=== PATIENT | female | born 1960 | race Caucasian/White ===

== ENCOUNTER 2024-01-15 15:37 | Inpatient (IN) | payer BC, SELFPAY ==
[2024-01-15 11:13] VITALS: BP 103/76
[2024-01-15 12:05] LABS: Hematocrit 39.2 % (37.0-47.0); Hemoglobin 13.4 g/dL (12.0-16.0); Mean Corp Hgb Conc. 34.2 g/dL (33.0-37.0); Mean Corpuscular Hgb 28.5 pg (27.0-31.0); Mean Corpuscular Volume 83.4 fL (81.0-99.0); Mean Platelet Volume 10.8 fL (7.4-10.4); Platelet Count 306 10^3/uL (130-400); Red Cell Dist. Width 14.5 % (11.5-14.5); White Blood Cell Count 16.1 10^3/uL (4.8-10.8)
[2024-01-15 12:15] LABS: Lactic Acid 1.3 mmol/L (0.7-2.0)
[2024-01-15 12:17] LABS: ALT (SGPT) 15 U/L (0-35); AST (SGOT) 30 U/L (14-36); Albumin 3.7 g/dl (3.5-5.0); Alkaline Phosphatase 98 U/L (38-126); Blood Urea Nitrogen 14 mg/dl (7-17); Carbon Dioxide 25 mmol/L (22-30); Chloride 97 mmol/L (98-107); Glucose 92 mg/dl (70-99); Potassium 4.3 mmol/L (3.5-5.1); Sodium 129 mmol/L (135-145); Total Bilirubin 1.1 mg/dl (0.2-1.3); eGFR > 60.00
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
[2024-01-15 12:44] LABS: Absolute Neutrophils -Man Diff 14.3 10^3/uL (1.4-6.5); Band Neutrophils 13 % (0-3); Eosinophils 1 % (0-6); Lymphocytes 2 % (20-51); Metamyelocytes 2 % (-); Monocytes 6 % (2-9); Platelets Checked Yes; Segmented Neutrophils 76 % (42-75)
[2024-01-15 12:45] LABS: Normal RBC Morphology Yes; Total Cells Counted 100
[2024-01-15 13:37] LABS: COVID-19 Antigen Negative (Negative)
[2024-01-15] MEDS: ZITHROMAX INFUSION 250 IV (13:50)
[2024-01-15] MEDS: ROCEPHIN 1000 MG IV (13:50)
[2024-01-15] MEDS: DUONEB 3 ML INH (13:51)
[2024-01-15] MEDS: NSS 1000 IV ×2 (13:56→17:32)
--- NOTE | 2024-01-15 14:12 | HPS.HSE ---
Addendum entered and electronically signed by Myron Ramirez DO 01/15/24 15:19:
Patient seen and examined discussed with KENDRICK Valdez, and I agree with her note.
Gen-AAOx3, NAD
HEENT-NC, AT, anicteric, clear oral mm
Neck-supple
CV-reg, no M, +S1/S2
Lungs-bilateral rhonchi
Abd-soft, NT, ND
Ext-no edema
Musculoskeletal-no cyanosis, clubbing
Skin-warm and dry
Neuro-grossly non-focal
Psych-calm, cooperative
Acute hypoxic respiratory insufficiency -due to pneumonia. Pulse ox 91% on room air. Admit to telemetry.
Sepsis due to community-acquired pneumonia -with underlying chronic bronchiectasis. History of Klebsiella and Pseudomonas positive sputum. Start empiric cefepime, check sputum culture.
Chronic bronchiectasis/ILD - followed by pulmonary, Dr. Horton. She started budesonide nebs this week with onset of her illness as well as albuterol nebs.
Hyponatremia -sodium 129. Check urine studies. Suspect SIADH related to pneumonia.
Hypothyroidism -continue Synthroid.
History of laryngeal cancer -s/p chemo, XRT 1996.
Chronic dysphagia -suspect related to prior laryngeal cancer and treatment. She was discharged from speech therapy recently. On a soft diet with thin liquids at home. She does not feel that she needs another speech therapy assessment.
History of breast cancer -s/p lumpectomy.
HCV
History of bowel obstruction
Full code
Original Note:
Family Physician
-
Family Physician: Melani Wilkerson
Chief Complaint
-
Shortness of Breath
History of Present Illness
Pt is a 63yo F w/ a PMH of Interstitial Lung Disease, Chronic Bronchiectasis, and recurrent pneumonia who is presenting to the ED c/o SOB x 5 days. She states she is short of breath at baseline but says this has increased significantly in the last 5
days, and is worse in the last 2 days. She states that she uses nebulizers at home, but has increased frequency this past week and has added Budesonide. She states she developed a fever last night with a Tmax of 101F. She admits to chills and
intercostal chest discomfort x 5 days. She admits to sweats x 3 days. She admits to non-productive, moist sounding cough which she states is chronic over the last several years but has become worse in the last week. She admits to history of
aspiration and is on a modified diet of soft foods with thin liquids. She denies known sick contacts.
Medical History
Past Medical History
Past Medical History: Reports Other
Additional Past Medical History:
Bronchiectasis / Interstitial Lung Disease
Hypothyroidism
Hepatitis C, clinically cured
Dysphagia
Laryngeal Cancer s/p Chemo and Radiation - 1996
Breast Cancer s/p Lumpectomy
Past Surgical History: Reports Other
Additional Past Surgical History:
Appendectomy
Cholecystectomy
Partial Hepatic Resection
Left Breast Lumpectomy
Social History
Tobacco: Former Smoker
Alcohol: Former
Drug: Former User
Family History
Family History: Not pertinent
Allergies / Home Medications
Allergies reflects when Allergies were last updated in [facility].
Home Medications with original date entered in [facility]
Allergy/Medication List:
Allergies
Allergy/AdvReac Type Severity Reaction Status Date / Time
No Known Allergies Allergy Verified 01/15/24 11:17
Home Medications
levothyroxine 75 mcg tablet 75 mcg PO DAILY 08/31/11
therapeutic multivitamin 1 tab PO DAILY ##0 01/04/18
trazodone 50 mg tablet 50 mg PO HS ##0 01/04/18
alprazolam 0.5 mg tablet (Xanax) 0.5 mg PO HS 01/15/24
estradiol 0.01% (0.1 mg/gram) vaginal cream (Estrace) 0 applic vaginal TUTH 01/15/24
fluconazole 150 mg tablet 150 mg PO DAILY 01/15/24
ipratropium bromide 0.02 % solution for inhalation 0.5 mg inhalation R Q6HPRN PRN sob 01/15/24
levalbuterol HCl 1.25 mg/3 mL solution for nebulization 1.25 mg inhalation R Q8HPRN PRN sob 01/15/24
Review of Systems
-
A 12 point ROS was completed and negative except as noted: Yes
Constitutional: Reports Fever
Respiratory: Reports Cough and Trouble Breathing
Cardiac: Denies Chest Pain or Palpitations
Abdomen/GI: Denies Abdominal Pain or Nausea
Physical Exam
Vital Signs
Vital Signs
Temp Pulse Resp BP Pulse Ox
98.0 F 107 18 103/76 91
01/15/24 11:13 01/15/24 11:13 01/15/24 11:13 01/15/24 11:13 01/15/24 11:13
Physical Exam
General: Comfortable and Conversant
HEENT: Moist mucous membranes and Oxygen (Nasal Cannula)
Respiratory: Rales (Right middle region) and Non Labored Respirations; No Accessory Resp Muscle Use
Cardiac: S1/S2 and Tachycardia (Slightly)
GI: Soft and Non Tender
Rectal: Deferred by Provider
Musculoskeletal: No Clubbing, No Cyanosis and No Edema
Skin: Warm and Dry
Neuro: Awake, Alert, Oriented and Nonfocal/grossly intact
Laboratory Results
-
01/15/24 11:54
01/15/24 11:54
Laboratory Results
Lactic Acid 1.3 mmol/L (0.7-2.0) 01/15/24 11:54
Total Bilirubin 1.1 mg/dl (0.2-1.3) 01/15/24 11:54
AST 30 U/L (14-36) 01/15/24 11:54
ALT 15 U/L (0-35) 01/15/24 11:54
Alkaline Phosphatase 98 U/L (38-126) 01/15/24 11:54
Data Reviewed
-
Diagnostic Radiology: Report Reviewed by me
Lab Data: Labs Reviewed by me
Impression/Plan
-
Acute Hypoxic Respiratory Insufficiency secondary to Pneumonia
-Continue supplemental oxygen
Sepsis secondary to Right Middle/Upper Lobe Pneumonia
-Concern for aspiration given her prior history of dysphagia
-Consult Speech Therapy
-Transition to Cefepime to cover for possible pseudomonas given prior history
-Continue Mucinex
-Consult Pulmonary
Hyponatremia
-Check urine electrolytes
-Continue fluid restriction
Interstitial Lung Disease / Bronchiectasis
-Continue Xopenex and Ipratropium Nebs
Hypothyroidism
-Continue Synthroid
Anxiety/Insomnia
-Continue trazodone and Xanax as prior to admission
Hx Laryngeal Cancer s/p Chemo and Radiation - 1996
Hx Breast Cancer s/p Lumpectomy
DVT proph: Lovenox
Code Status: Full Code
[2024-01-15 14:23] LABS: Procalcitonin 8.63 ng/ml (0.0-0.25)
[2024-01-15] MEDS: ZOFRAN 4 MG IV (15:50)
[2024-01-15 16:26] VITALS: BP 122/92
--- NOTE | 2024-01-15 16:30 | PTCARENOTE ---
Pt arrived to rm 405-1 at this time, AAOx3, no complaints of pain, SR on telemetry. SpO2 97% on 2L of O2. See shift assessment for further detail. Oriented pt to plan of care, reporting concerns, call brar etc, will monitor.
[2024-01-15] MEDS: MAXIPIME 2000 MG IV (17:32)
[2024-01-15] MEDS: LOVENOX 40 MG SC (17:33)
[2024-01-15] MEDS: STERILE WATER FOR INJECTION 10 ML IV (17:33)
[2024-01-15] MEDS: TYLENOL 650 MG PO (18:12)
[2024-01-15 19:00] VITALS: BP 108/73
[2024-01-15] MEDS: ATROVENT NEBULES 0.5 MG INH (19:46)
[2024-01-15] MEDS: XOPENEX 1.25 MG INHALANT SOLUTION INH (19:47)
[2024-01-15] MEDS: XANAX 0.5 MG PO (20:27)
[2024-01-15] MEDS: MUCINEX 600 MG PO (20:27)
[2024-01-15 20:35] LABS: Osmolality Urine 222 mOsm/kg (300-900)
[2024-01-15 20:53] LABS: Urine Sodium 42 mmol/L (30-90)
[2024-01-15] MEDS: VISBIOME 1 CAP PO (21:06)
[2024-01-15] MEDS: DESYREL 50 MG PO (21:27)
[2024-01-15] MEDS: MELATONIN 5 MG PO (21:27)
[2024-01-15 23:26] VITALS: BP 75/47
[2024-01-15] MEDS: ProAmatine 10 MG PO (23:38)
--- NOTE | 2024-01-15 23:46 | PTCARENOTE ---
Pt BP is 75/47. HR= 69, afebrile. Pt denies symptoms, was sleeping prior to vs taken and is asking to go back to sleep. stephanie Meléndez notified and orders placed for midodrine stat and to increase IVF to 100 ml/hr for 2 hours then re check bp.
[2024-01-16] VITALS (23 sets, daily range): BP systolic 77–158; BP diastolic 49–116
--- NOTE | 2024-01-16 01:47 | W.PN.UPDATE ---
Update Note
Progress Note Update
Patient is hypotensive with SBP in low 70s, patient received bolus IVF in ER, and currently on maintenance IVF at 75ml/hr. IVF rate was increased and one time midodrine 10mg was given with no effect. Patient continue with hypotension with the SBP in
low 70s. Levophed started and will transfer patient to IMU for medication administration per protocol.
[2024-01-16 05:13] LABS: Hematocrit 34.2 % (37.0-47.0); Hemoglobin 11.6 g/dL (12.0-16.0); Mean Corp Hgb Conc. 33.9 g/dL (33.0-37.0); Mean Corpuscular Hgb 28.4 pg (27.0-31.0); Mean Corpuscular Volume 83.6 fL (81.0-99.0); Mean Platelet Volume 10.9 fL (7.4-10.4); Platelet Count 254 10^3/uL (130-400); Red Blood Cell Count 4.09 10^6/uL (4.20-5.40); Red Cell Dist. Width 14.6 % (11.5-14.5); White Blood Cell Count 16.9 10^3/uL (4.8-10.8)
[2024-01-16 05:38] LABS: Blood Urea Nitrogen 12 mg/dl (7-17); Calcium 9.1 mg/dl (8.4-10.2); Carbon Dioxide 26 mmol/L (22-30); Chloride 98 mmol/L (98-107); Estimated Creatinine Clearance 52 ml/min; Glucose 77 mg/dl (70-99); Magnesium 1.7 mg/dl (1.6-2.3); Potassium 4.5 mmol/L (3.5-5.1); Sodium 131 mmol/L (135-145); eGFR > 60.00
[2024-01-16] MEDS: MAXIPIME 2000 MG IV ×2 (05:59→16:12)
[2024-01-16] MEDS: STERILE WATER FOR INJECTION 10 ML IV ×2 (05:59→16:12)
[2024-01-16] MEDS: SYNTHROID 75 MCG PO (06:00)
--- NOTE | 2024-01-16 06:00 | PTCARENOTE ---
Pt received to IMU from 4E after drop in BP overnight. Order entered for Levophed gtt to keep MAP > 65. On arrival to floor MAP > 65 and has been maintained > 65. Levophed never initiated. Pt AAOx3. Able to make needs known. Bedrest for now. IVF's
infusing as ordered. Received Midodrine prior to arrival to IMU. Assessment as documented and unchanged. Was oriented to new room and surroundings. Call brar within reach.
[2024-01-16] MEDS: NSS 1000 IV ×2 (06:01→16:12)
[2024-01-16] MEDS: TYLENOL 650 MG PO ×2 (06:04→14:22)
[2024-01-16 06:06] LABS: TSH Reflex To Free T4 0.95 uIU/ml (0.47-4.68)
--- NOTE | 2024-01-16 07:36 | W.PN.HOSP.TC ---
Today's Communication/Plan
-
Acapella, incentive spirometer, Mucinex
Continue antibiotics
Continue normal saline
Await cultures
Pulmonary consult
Assessment / Plan
Assessment / Plan
Gen-AAOx3, NAD
HEENT-NC, AT, anicteric, clear oral mm
Neck-supple
CV-reg, no M, +S1/S2
Lungs-mild bilateral rhonchi
Abd-soft, NT, ND
Ext-no edema
Musculoskeletal-no cyanosis, clubbing
Skin-warm and dry
Neuro-grossly non-focal
Psych-calm, cooperative
Acute hypoxic respiratory insufficiency -due to pneumonia.� Oxygenation 95% on 2 L nasal cannula, wean down as able. COVID-19 and influenza negative.
Septic shock due to community-acquired pneumonia -with underlying chronic bronchiectasis.� Chest x-ray shows right upper and right middle lobe pneumonia superimposed on chronic scarring and COPD. History of Klebsiella and Pseudomonas positive
sputum.� Continue IV cefepime, check sputum culture. Blood cultures pending.
Hypotension noted overnight. Transferred to IMU for vasopressors but never initiated as her blood pressure improved. She did get 1 dose of midodrine 10 mg prior to midnight.
Chronic bronchiectasis/ILD - followed by pulmonary, Dr. Horton.� She started budesonide nebs this week with onset of her illness as well as albuterol nebs.
Hyponatremia -sodium improving 131 today. Suspect component of volume depletion, hypovolemic hyponatremia. Continue normal saline.
Hypothyroidism -continue Synthroid. TSH 0.95.
History of laryngeal cancer -s/p chemo, XRT 1996.
Chronic dysphagia -suspect related to prior laryngeal cancer and treatment.� She was discharged from speech therapy recently.� On a soft diet with thin liquids at home.� She does not feel that she needs another speech therapy assessment.
History of breast cancer -s/p lumpectomy.
HCV
History of bowel obstruction
Full code
Anticipated Discharge: > 48 hours
Subjective/Interval History
-
Date of Service: January 16, 2024
Patient seen and examined. No complaints currently. Eating breakfast.
Objective Data
-
Labs:
Laboratory Results
01/16/24 01/16/24
04:47 04:48
WBC 16.9 H
Hgb 11.6 L
Hct 34.2 L
Plt Count 254
Sodium 131 L
Potassium 4.5
Chloride 98
Carbon Dioxide 26
BUN 12
Creatinine 0.8
Glucose 77
Calcium 9.1
Vital Signs:
Vital Signs
Temp Pulse Resp BP Pulse Ox
99.1 F 79 24 107/81 96
01/16/24 06:11 01/16/24 07:15 01/16/24 07:15 01/16/24 07:00 01/16/24 07:15
I&O
01/15/24 01/16/24 01/17/24
06:59 06:59 06:59
Intake Total 1175 / 1175
Balance 1175 / 1175
Review of Systems
-
History Source: Patient
All other systems: Reviewed and negative
[2024-01-16] MEDS: ATROVENT NEBULES 0.5 MG INH ×3 (07:42→17:56)
[2024-01-16] MEDS: XOPENEX 1.25 MG INHALANT SOLUTION INH ×3 (07:42→17:57)
[2024-01-16] MEDS: VISBIOME 1 CAP PO (08:28)
[2024-01-16] MEDS: MUCINEX 600 MG PO ×2 (08:28→19:48)
[2024-01-16] MEDS: DIFLUCAN 150 MG PO (09:09)
--- NOTE | 2024-01-16 12:03 | PTOTSP ---
ST Initial Evaluation
Known mild-moderate oral and moderate pharyngeal dysphagia; s/p VFSS 06/2023. Dysphonia; hoarse/breathy and hypophonic intermittently wet i/s/o laryngeal cx (1996) s/p chemo/XRT
Pt received awake/alert seated upright in chair. Flat affect with 1-2 word responses to questions. Vocal quality is hoarse/breathy and hypophonic intermittently wet. Self fed trials of mildly-thick liquids by spoon and cup sip. Did not implement
swallow strategies although she was able to recall them. Encouraged use of strategies. Declined solid trials.
Recommend
1. Soft/bite-size solids (L6) and Mildly-thick liquids (L2) by spoon or small/single cup sip
2. Aspiration and KENNETH/reflux precautions
3. Use of swallow strategies: small bites and small/single sips of beverages/liquids, super-supraglottic swallow, L-head turn, throat clear, multiple swallow, and alternate liquids/solids
4. Meds oral whole/single with sips of mildly-thick liquids or placed in apple sauce
5. HEALTH ECONOMIST following; monitor diet tolerance, strategy training/educaton and determine if repeat objective testing is indicated
--- NOTE | 2024-01-16 15:18 | CON.PUL ---
Consultation
Consultation Request
Date/Time Consultation Requested: 01/16
Date/Time Consultation Performed: 01/16
Reason for Consultation: Pneumonia
Medical History
-
History of Present Illness:
Patient is a 63-year-old female well-known to myself, followed as outpatient. She has a history of recurrence of his pneumonia, aspiration pneumonia, interstitial lung disease, history of laryngeal cancer with chemotherapy/radiation 20+ years ago
with tracheal papillomatosis followed at [place], presents with few days of increased shortness of breath, chest congestion, subjective fevers. Upon arrival, afebrile, pulse 107, blood pressure 103/76, 91%. Chest x-ray showed worsening right-sided
lung infiltrate consistent with pneumonia. Patient was given IV antibiotics, admitted for management. We are asked to help from pulmonary standpoint. Since admission, she is feeling better. I observed her ambulating without difficulty.
She coughs up minimal mucus but no blood. She denies any change in her aspiration precautions despite being cleared recently by speech and swallow. She does have a history of aspiration syndrome. Denies any changes in weight
.
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
left breast, history of COVID March 2022, tracheal papilloma, small bowel obstruction x 3 in the past most recently 2002, influenza A pneumonia, streptococcal pneumonia with bacteremia, history of restrictive lung disease, hypoxia, GERD,
hypothyroidism s/p TIAN therapy
Past Medical History
Past Medical History: None (See above)
Past Surgical History: None ( see above)
Social History
Tobacco: Former Smoker ([id number], quit )
Alcohol: None
Drug: None
Personal:
Living: Alone
Employment: Not Employed
Family History
Family History: Other (Mother from breast cancer age 53. 1 son drug addict.)
Allergies / Home Medications
Allergies
Allergy/AdvReac Type Severity Reaction Status Date / Time
No Known Allergies Allergy Verified 01/15/24 11:17
Home Medications
Medication Instructions Recorded Confirmed Last Taken Type
levothyroxine 75 mcg tablet 75 mcg PO DAILY Thyroid 08/31/11 01/15/24 01/15/24 History
therapeutic multivitamin 1 tab PO DAILY Supplement ##0 01/04/18 01/15/24 Unknown History
trazodone 50 mg tablet 50 mg PO HS Mental Health/Anxiety 01/04/18 01/15/24 01/14/24 History
##0
alprazolam 0.5 mg tablet (Xanax) 0.5 mg PO HS Mental Health/Anxiety 01/15/24 01/15/24 01/14/24 History
estradiol 0.01% (0.1 mg/gram) 0 applic vaginal TUTH HORMONE 01/15/24 01/15/24 Unknown History
vaginal cream (Estrace)
fluconazole 150 mg tablet 150 mg PO DAILY Infection 01/15/24 01/15/24 01/14/24 History
ipratropium bromide 0.02 % 0.5 mg inhalation R Q6HPRN PRN sob 01/15/24 01/15/24 Unknown History
solution for inhalation
levalbuterol HCl 1.25 mg/3 mL 1.25 mg inhalation R Q8HPRN PRN sob 01/15/24 01/15/24 Unknown History
solution for nebulization
Review of Systems
-
All other systems: Negative unless noted
Vitals / Labs / Diagnostic Testing
Vital Signs
Temp Pulse Resp BP Pulse Ox
97.4 F 93 19 108/86 100
01/16/24 12:32 01/16/24 14:46 01/16/24 14:46 01/16/24 14:46 01/16/24 14:46
Lab Data
01/16/24 04:48
01/16/24 04:47
Microbiology
01/15/24 13:40 Blood/Venous Blood Culture - Preliminary
No Growth in 24 hours- Final report to follow
01/15/24 11:54 Blood/Venous Blood Culture - Preliminary
No Growth in 24 hours- Final report to follow
01/15/24 13:11 Nasal Swab Influenza Types A & B (ANNEMARIE) - Final
Negative for Influenza A & B, NAAT
Negative results must be combined with clinical observations
and patient history.
Nucleic Acid Amplification test (NAAT)performed on the
[employer] platform.
Diagnostic Testing:
Physical Exam
-
HEENT: Normocephalic, Anicteric, Other (Radiation changes involving the neck) and Other (Pulmonary cachexia)
Cardiovascular: S1/S2, Regular Rhythm, Murmur (n), Rub (n), Peripheral Edema and Calf Tenderness (n)
Respiratory: Wheeze (n), Rales (few), Rhonchi (few) and Non-Labored Respirations
GI: Soft, Non Distended and Non Tender
Neurology: Awake, Alert and No Motor Deficits
Skin: Good Color
General: Comfortable
Assessment
-
63-year-old female with history of recurrent pneumonia, Pseudomonas/streptococcal pneumonia in the past, aspiration syndrome with ongoing speech and swallow therapy as outpatient, history of head and neck/laryngeal cancer with radiation/chemotherapy
, presents with increased symptoms for 5 days. Chest x-ray confirms acute pneumonia on the right side. Patient admitted with antibiotics. Episode of hypotension through the night noted, responded to IV fluids
Acute right-sided pneumonia, suspected community-acquired
Sepsis, hypotension
Responded to IV fluids
History of recurrent pneumonia
Klebsiella/Pseudomonas/streptococcal
Hyponatremia, improved
Interstitial lung disease/bronchiectasis
Conditions present prior to admission
Hypothyroidism
History of laryngeal cancer status postchemotherapy/XRT in 1996
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
History of breast cancer 2020 left side
Lumpectomy
History for recurrent bowel obstruction, last 2002
Chronic dysphagia/aspiration syndrome
[id number] history of smoking, quit
Family history of breast cancer
Plan/recommendations
At this time, patient appears to be subjectively improved. Observed ambulating in the hallways without difficulty
Chest x-ray with clear acute right-sided infiltrate
Patient is not on chronic steroid therapy. Has been on nebulized therapy in the past but does not take regularly, only takes with flareups
Moving forward
Continue with IV fluids given hypotension, now improved
Remains on cefepime antibiotics
Continue with airway clearance, Acapella/incentive spirometry
Patient does have history of hemoptysis. Will hold on vest therapy for now as she is subjectively improved
Continue with aspiration precautions
Ipratropium/Xopenex via nebulizer
Hold on budesonide nebs for now
Patient has had problems with thrush in the past
Sputum culture if able
Reviewed with patient at length
Reviewed with primary service
Will follow
[2024-01-16] MEDS: LOVENOX 40 MG SC (18:08)
[2024-01-16] MEDS: XANAX 0.5 MG PO (19:47)
[2024-01-16] MEDS: COLACE 100 MG PO (19:48)
[2024-01-16] MEDS: SENOKOT 8.59999999999999964 MG PO (20:47)
[2024-01-16] MEDS: MELATONIN 5 MG PO (20:47)
[2024-01-16] MEDS: DESYREL 50 MG PO (20:48)
[2024-01-17] VITALS (13 sets, daily range): BP systolic 85–179; BP diastolic 63–115; BMI 18.6
[2024-01-17] MEDS: NSS 1000 IV ×2 (01:39→11:50)
--- NOTE | 2024-01-17 03:13 | PTCARENOTE ---
Pt sleeping on and off throughout night. Using bathroom with min assist d/t wires. Continues with occasional moist productive cough. Instructed pt on IS but did not use while in room. SR on CM VSS. Slightly hypotensive with MAP > 65. Pt states her
BP at baseline is in the 90's. Afebrile. No change from previous assessment. Call brar remains within reach. Will continue to monitor.
[2024-01-17] MEDS: SYNTHROID 75 MCG PO (05:05)
[2024-01-17] MEDS: STERILE WATER FOR INJECTION 10 ML IV ×2 (05:06→15:42)
[2024-01-17] MEDS: MAXIPIME 2000 MG IV ×2 (05:06→15:43)
[2024-01-17 05:47] LABS: Blood Urea Nitrogen 7 mg/dl (7-17); Calcium 8.5 mg/dl (8.4-10.2); Carbon Dioxide 25 mmol/L (22-30); Chloride 106 mmol/L (98-107); Estimated Creatinine Clearance 60 ml/min; Glucose 73 mg/dl (70-99); Potassium 4.2 mmol/L (3.5-5.1); Sodium 132 mmol/L (135-145); eGFR > 60.00
--- NOTE | 2024-01-17 07:43 | W.PN.HOSP.TC ---
Today's Communication/Plan
-
Continue antibiotics
Check sputum culture
Aspiration precautions
Acapella, incentive spirometer
Assessment / Plan
Assessment / Plan
Gen-AAOx3, NAD
HEENT-NC, AT, anicteric, clear oral mm
Neck-supple
CV-reg, no M, +S1/S2
Lungs-clear bilaterally
Abd-soft, NT, ND
Ext-no edema
Musculoskeletal-no cyanosis, clubbing
Skin-warm and dry
Neuro-grossly non-focal
Psych-calm, cooperative
Acute hypoxic respiratory insufficiency -due to pneumonia.� Oxygenation 95% on 2 L nasal cannula, wean down as able. COVID-19 and influenza negative.
Septic shock due to community-acquired pneumonia -with underlying chronic bronchiectasis.� Chest x-ray shows right upper and right middle lobe pneumonia superimposed on chronic scarring and COPD. History of Klebsiella and Pseudomonas positive
sputum.� Continue IV cefepime, check sputum culture. Blood cultures negative so far.
Blood pressure relatively stable. Has not required vasopressors so far.
Chronic bronchiectasis/ILD - followed by pulmonary, Dr. Horton.� She started budesonide nebs this week with onset of her illness as well as albuterol nebs.
Hyponatremia -sodium improving 132 today. Suspect component of volume depletion, hypovolemic hyponatremia. Continue normal saline.
Hypothyroidism -continue Synthroid. TSH 0.95.
History of laryngeal cancer -s/p chemo, XRT 1996.
Chronic dysphagia -suspect related to prior laryngeal cancer and treatment.� She was discharged from speech therapy recently.� On a soft diet with thin liquids at home.� Assessed by speech therapy here, recommendation made for soft/bite sized
solids, mildly thick liquids by spoon or small single cup sips.
History of breast cancer -s/p lumpectomy.
HCV
History of bowel obstruction
Full code
Anticipated Discharge: 24 - 48 hours
Subjective/Interval History
-
Date of Service: January 17, 2024
Patient seen and examined. Feeling better overall. No shortness of breath on exertion.
Objective Data
-
Labs:
Laboratory Results
01/17/24
04:54
Sodium 132 L
Potassium 4.2
Chloride 106
Carbon Dioxide 25
BUN 7
Creatinine 0.7
Glucose 73
Calcium 8.5
Vital Signs:
Vital Signs
Temp Pulse Resp BP Pulse Ox
98.4 F 71 20 108/74 97
01/17/24 03:27 01/17/24 06:00 01/17/24 06:00 01/17/24 06:00 01/17/24 06:00
I&O
01/16/24 01/17/24 01/18/24
06:59 06:59 06:59
Intake Total 1175 / 1175 1400 / 1400
Balance 1175 / 1175 1400 / 1400
Review of Systems
-
History Source: Patient
All other systems: Reviewed and negative
[2024-01-17] MEDS: ATROVENT NEBULES 0.5 MG INH ×3 (07:56→20:54)
[2024-01-17] MEDS: XOPENEX 1.25 MG INHALANT SOLUTION INH ×3 (07:56→20:55)
[2024-01-17] MEDS: VISBIOME 1 CAP PO (08:51)
[2024-01-17] MEDS: COLACE 100 MG PO ×2 (08:51→20:47)
[2024-01-17] MEDS: MUCINEX 600 MG PO ×2 (08:51→20:47)
[2024-01-17] MEDS: DIFLUCAN 150 MG PO (08:51)
--- NOTE | 2024-01-17 11:51 | CM ---
CM reviewed medical records. CM met with patient in room. Patient confirmed demographics. Patient lives independently. Patient has a history of [facility], but not currently on service. Patient denies history of SNF. Patient has a nebulizer. Patient is
active with her PCP Dr. Wilkerson. Patient uses [facility].
CM will continue to follow or PT recommendations.
PLAN: home vs Home with VN
[2024-01-17] MEDS: TYLENOL 650 MG PO (16:20)
--- NOTE | 2024-01-17 17:33 | PTCARENOTE ---
Assumed care of pt at shift change. Pt resting comfortably in bed. Continues on 2L O2 via NC @ 97%; Denies pain, Afebrile; HR ~ 90-100's; BP stable. Sputum specimen obtained and sent to lab, results pending. Walked unit with Pt, SpO2 86% - 92%;
Pt reported feeling SOB, but recovered quickly with rest. Will continue to monitor and assess.
[2024-01-17] MEDS: LOVENOX 40 MG SC (18:30)
[2024-01-17] MEDS: XANAX 0.5 MG PO (20:47)
[2024-01-17] MEDS: MELATONIN 5 MG PO (22:07)
[2024-01-17] MEDS: SENOKOT 8.59999999999999964 MG PO (22:07)
[2024-01-17] MEDS: DESYREL 50 MG PO (22:07)
--- NOTE | 2024-01-17 22:20 | PTCARENOTE ---
Patient with increased cough after eating muffin and drinking thin tea. Patient education given about nectar thick liquids and taking small moist bites. BL middle and lower lung sounds with expiratory wheezing. RT at bedside with scheduled breathing
treatments. Patient also c/o constipation, able to take senna and Colace. Provider notified of increased cough, lung sound, and patient request for miralax. Mouth care provided and patient instructed on IS and acapella.
[2024-01-18] VITALS (10 sets, daily range): BP systolic 93–179; BP diastolic 62–124; BMI 18.1
[2024-01-18] MEDS: STERILE WATER FOR INJECTION 10 ML IV ×2 (02:46→16:35)
[2024-01-18] MEDS: MAXIPIME 2000 MG IV ×2 (02:46→16:34)
--- NOTE | 2024-01-18 02:55 | PTCARENOTE ---
Patient called to state she was feeling 'feverish' and that her head was burning. Patient hesitant to swallow medication, requesting IV Tylenol. Offered rectal Tylenol option. provider notified. Patient was able to walk to bathroom and void. When
she returned she no longer felt she needed Tylenol.
[2024-01-18] MEDS: ATROVENT NEBULES 0.5 MG INH ×3 (08:06→19:23)
[2024-01-18] MEDS: XOPENEX 1.25 MG INHALANT SOLUTION INH ×3 (08:07→19:23)
[2024-01-18] MEDS: MUCINEX 600 MG PO ×2 (08:53→20:36)
[2024-01-18] MEDS: COLACE 100 MG PO ×2 (08:53→20:35)
[2024-01-18] MEDS: VISBIOME 1 CAP PO (08:53)
[2024-01-18] MEDS: SYNTHROID 75 MCG PO (08:57)
[2024-01-18] MEDS: DIFLUCAN 150 MG PO (09:16)
--- NOTE | 2024-01-18 09:43 | W.PN.PUL3 ---
Today's Communication / Plan
-
Continue secretion clearance interventions
Continue IV cefepime
Wean down supplemental oxygen as able
Increase activity as able
Wait for sputum culture
Assessment
-
63-year-old female with history of recurrent pneumonia, Pseudomonas/streptococcal pneumonia in the past, aspiration syndrome with ongoing speech and swallow therapy as outpatient, history of head and neck/laryngeal cancer with radiation/chemotherapy
, presents with increased symptoms for 5 days. Chest x-ray confirms acute pneumonia on the right side. Patient admitted with antibiotics. Episode of hypotension through the night noted, responded to IV fluids
Acute right-sided pneumonia, suspected community-acquired
Sepsis, hypotension
Responded to IV fluids
History of recurrent pneumonia
Klebsiella/Pseudomonas/streptococcal
Hyponatremia, improved
Interstitial lung disease/bronchiectasis
Conditions present prior to admission
Hypothyroidism
History of laryngeal cancer status postchemotherapy/XRT in 1996
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
History of breast cancer 2020 left side
Lumpectomy
History for recurrent bowel obstruction, last 2002
Chronic dysphagia/aspiration syndrome
61-[id number]-[id number] history of smoking, quit
Family history of breast cancer
Plan/recommendations
Fever curve improved-patient does report some chills
Respiratory status not improved completely yet: Continues to have chest congestion with occasional difficulty expectorating. Also some shortness of breath with activity. Not at baseline.
Remains on supplemental oxygen which is new for her at 2 L.(Not improved so far)
Continue to wean down to off as able.
-
Chest x-ray with clear acute right-sided infiltrate(images personally reviewed by me)
Patient is not on chronic steroid therapy. Has been on nebulized therapy in the past but does not take regularly, only takes with flareups.
Continue current antibiotics with IV cefepime.
Leukocytosis noted-follow CBC
Follow fever curve.
patient does report some chills at night.
-
Follow sputum culture- pending results.
So far blood cultures negative
-
Continue secretion clearance interventions:
Nebulizers:-Ipratropium/Xopenex via nebulizer
No need for systemic or nebulized steroids. Apparently patient has developed thrush in the past.
Continue with airway clearance, Acapella/incentive spirometry
-
Patient does have history of hemoptysis. Will hold on vest therapy for now as she is subjectively improved
Continue with aspiration precautions-patient reports having an episode of choking last night.
-
Dr. Turner updated patient in detail on 01/18/2024. Not ready for discharge yet. Explained that would like sputum culture resulted before any disposition
-
Reviewed with primary service
-
Will follow
Subjective Data
-
Date of Service:
Date of Service: January 18, 2024
Chief Complaint: Pulmonary Follow Up (Severe pneumonia-hypoxemic respiratory failure)
Subjective:
Continues to report cough, congestion.
At times difficulty expectorating.
Remains on supplemental oxygen
Denies hemoptysis
Reports chills at night
Review of Systems
General: Fever (n)
Cardiopulmonary: Dyspnea, Cough, Sputum Production and Chest Pain (n)
GI: Abdominal Pain (n) and Nausea (n)
Objective Data
Data Reviewed
Vital Signs / I&O / Oxygen:
Vital Signs
Temp Pulse Resp BP Pulse Ox
98 F 89 22 111/101 97
01/18/24 07:10 01/18/24 08:09 01/18/24 08:09 01/18/24 04:33 01/18/24 08:09
Intake and Output
01/17/24 01/18/24 01/19/24
06:59 06:59 06:59
Intake Total 1400 / 1400 120 / 120
Balance 1400 / 1400 120 / 120
SaO2 97
Nasal Cannula flow liters per 3
minute
Physical Exam
General: Respiratory Distress (Mild with conversation)
HEENT: Normocephalic
Cardiovascular: S1-S2 and Regular Rhythm
Respiratory: Wheeze (n), Crackles (Right base) and Rhonchi (Mild bilaterally)
GI: Soft and Non Distended
Neurology: Awake, Alert, Oriented, AO x 3 and No Motor Deficits
Skin: Warm
Labs/Micro/Reports
Microbiology
01/15/24 13:40 Blood/Venous Blood Culture - Preliminary
No Growth in 48 hours- Final report to follow
01/17/24 09:24 Sputum Gram Stain - Preliminary
01/15/24 11:54 Blood/Venous Blood Culture - Preliminary
No Growth in 48 hours- Final report to follow
01/15/24 17:14 Nose MRSA Screen - Final
No Methicillin Resistant Staphylococcus aureus isolated.
01/15/24 13:11 Nasal Swab Influenza Types A & B (ANNEMARIE) - Final
Negative for Influenza A & B, NAAT
Negative results must be combined with clinical observations
and patient history.
Nucleic Acid Amplification test (NAAT)performed on the
[employer] platform.
[2024-01-18 10:05] LABS: % Basophils 0.2 % (0-2); % Eosinophils 1.1 % (0-6); % Immature Granulocytes 3.7 % (0-0.5); % Lymphocytes 11.7 % (20.5-51.1); % Monocytes 4.4 % (1.7-9.3); % Neutrophils 78.9 % (42.2-75.2); Absolute Eosinophils 0.2 10^3/uL (0-0.7); Absolute Immature Granulocytes 0.6 10^3/uL (0-0.05); Absolute Lymphocytes 1.8 10^3/uL (1.2-3.4); Absolute Monocytes 0.7 10^3/uL (0.1-0.6); Absolute Neutrophils 12.3 10^3/uL (1.4-6.5); Hematocrit 35.5 % (37.0-47.0); Hemoglobin 12.2 g/dL (12.0-16.0); Mean Corp Hgb Conc. 34.4 g/dL (33.0-37.0); Mean Corpuscular Hgb 27.8 pg (27.0-31.0); Mean Corpuscular Volume 80.9 fL (81.0-99.0); Nucleated Red Blood Cells % 0 %; Platelet Count 306 10^3/uL (130-400); Red Blood Cell Count 4.39 10^6/uL (4.20-5.40); Red Cell Dist. Width 14.3 % (11.5-14.5); White Blood Cell Count 15.6 10^3/uL (4.8-10.8)
[2024-01-18 10:20] LABS: Blood Urea Nitrogen 7 mg/dl (7-17); Calcium 8.9 mg/dl (8.4-10.2); Carbon Dioxide 28 mmol/L (22-30); Chloride 97 mmol/L (98-107); Estimated Creatinine Clearance 60 ml/min; Glucose 109 mg/dl (70-99); Potassium 3.8 mmol/L (3.5-5.1); Sodium 130 mmol/L (135-145); eGFR > 60.00
--- NOTE | 2024-01-18 10:44 | W.PN.HOSP.TC ---
Addendum entered and electronically signed by Kavitha Andino MD 01/18/24 11:10:
Chronic leukocytosis-All labs since 2018-needs outpatient hematology follow-up
Rpt CXR
Original Note:
Today's Communication/Plan
-
Wean oxygen as tolerated
Transfer to telemetry
Assessment / Plan
Assessment / Plan
CVS: S1-S2 normal
Chest: few rales
Abdomen: Soft, NT / Bowel sounds present
Extremities: No edema, normal pulses
POST EXCHANGE MANAGER: Non focal exam
#Acute hypoxic respiratory insufficiency -Due to pneumonia.� Oxygenation 95% on 2 L nasal cannula, wean down as able. COVID-19 and influenza negative.
#Septic shock due to community-acquired pneumonia -with underlying chronic bronchiectasis.�
Chest x-ray shows right upper and right middle lobe pneumonia superimposed on chronic scarring and COPD. History of Klebsiella and Pseudomonas positive sputum.�
Continue IV cefepime, check sputum culture. Blood cultures negative so far.
#Chronic bronchiectasis/ILD - followed by pulmonary, Dr. Horton.� She started budesonide nebs this week with onset of her illness as well as albuterol nebs.
#Hyponatremia -check serum osmolality, urine osmolality and urine sodium
#Hypothyroidism -continue Synthroid. TSH 0.95.
#History of laryngeal cancer -s/p chemo, XRT 1996.
#Chronic dysphagia -suspect related to prior laryngeal cancer and treatment .� She was discharged from speech therapy recently.� On a soft diet with thin liquids at home.� Assessed by speech therapy here, recommendation made for soft/bite sized
solids, mildly thick liquids by spoon or small single cup sips.
#History of breast cancer -s/p lumpectomy.
#HCV
#History of bowel obstruction
#History of hepatitis C
# Ex-smoker
#Full code
Discussed with [id number] at bedside
Anticipated Discharge: 24 - 48 hours
Subjective/Interval History
-
Date of Service: January 18, 2024
Objective Data
-
Labs:
Laboratory Results
01/18/24
09:56
WBC 15.6 H
Hgb 12.2
Hct 35.5 L
Plt Count 306 D
Sodium 130 L
Potassium 3.8
Chloride 97 L
Carbon Dioxide 28
BUN 7
Creatinine 0.7
Glucose 109 H
Calcium 8.9
Vital Signs:
Vital Signs
Temp Pulse Resp BP Pulse Ox
98 F 89 22 111/101 97
01/18/24 07:10 01/18/24 08:09 01/18/24 08:09 01/18/24 04:33 01/18/24 08:09
I&O
01/17/24 01/18/24 01/19/24
06:59 06:59 06:59
Intake Total 1400 / 1400 120 / 120
Balance 1400 / 1400 120 / 120
[2024-01-18 11:23] LABS: Osmolality Serum 270 mOsm/kg (275-300)
[2024-01-18 11:53] LABS: Magnesium 1.7 mg/dl (1.6-2.3)
[2024-01-18] MEDS: SENOKOT 8.59999999999999964 MG PO ×2 (12:48→20:35)
[2024-01-18] MEDS: MILK OF MAGNESIA 30 ML PO (12:48)
--- NOTE | 2024-01-18 13:43 | PN.CDI ---
CDI
- -
CDI:
Physician Documentation Request
Admit Date: 01/15/24 15:37
Dear Doctor Thu,
Clinical Indicators:
Patient admitted with sepsis due to community acquired pneumonia; PMH includes laryngeal cancer and dysphagia.
BMI: 18.1
01/17 note/assessment: 'Pt meets criteria for moderate protein calorie malnutrition of chronic illness with <75% intake x >/= 1mo, moderate loss of subcutaneous fat triceps, ribcage, mild muscle loss with some protrusion of clavicle, depression
of temporal.'
Based on the information, which of the following most accurately represents the patient's nutritional status?
Moderate Protein Calorie Malnutrition
Other (please specify)
[place] Criteria ([facility] Hospitalist 2017)
2 or more criteria must be present for either
non severe or severe malnutrition
Note that the criteria differs related to the
presence of an acute or chronic illness
Acute Illness Chronic Illness
Energy Intake Non Severe: <75% for >7 days Non Severe: <75% for >1 month
Severe: <50% for >5 days Severe: <75% for >1 month
Weight Loss Non Severe: 1-2% over 1 week Non Severe: 5% over 1 month
5% over 1 month 7.5% over 3 months
7.5% over 3 months 10% over 6 months
1 year N/A 20% over 1 year
Severe: >2% over 1 week Severe: >5% over 1 month
>5% over 1 month >7.5% over 3 months
>7.5% over 3 months >10% over 6 months
1 year N/A >20% over 1 year
Body Fat Non Severe: Mild Decrease Non Severe: Mild Loss
Severe: Moderate Decrease Severe: Severe Loss
Muscle Mass Non Severe: Mild Decrease Non Severe: Mild Loss
Severe: Moderate Decrease Severe: Severe Loss
Fluid Accumulation Non Severe: Mild Accumulation Non Severe: Mild Accumulation
Severe: Moderate to severe Severe: Moderate to severe
accumulation accumulation
Reduced Animal Pathologist Strength Non Severe: N/A Non Severe: N/A
Severe: Measurably reduced Severe: Measurably reduced
Additional criteria that can be used to Determine if Mild or Moderate Malnutrition (Merck Manual 2018)
Mild Moderate Severe
Albumin gm/dl <3.0 gm/dl <2.5 gm/dl <2.0 gm/dl
Pre Albumin mg/dl <15 gm/dl <10 mg/dl <5.0 mg/dl
BMI <18.5 <17 <16
Use of terms such as suspected, likely, concern for, or probable (associated with a specific diagnosis that is being evaluated, monitored, or treated as if it exists) are acceptable and can be coded in the inpatient setting, when documented at the
time of discharge.
Thank you,
FAUSTO Pool RN
CDI Specialist
available via tiger text
Please use your independent medical judgment in providing your response.
--- NOTE | 2024-01-18 16:47 | PTCARENOTE ---
report to 4th floor. Pt moved via stretcher to room 403-2.
[2024-01-18] MEDS: LOVENOX 40 MG SC (17:10)
--- NOTE | 2024-01-18 17:14 | PTCARENOTE ---
pt transfer from IMU. report received from IMU RN. pt is AAO*3, BP in 170's/100's HR 100's, 1L O2. pt SOB and wheezing. notified of BP. pt c/o back pain from coughing. pt is oriented to the room. call brar within the reach. will continue plan of
care.
[2024-01-18] MEDS: LASIX 20 MG PO (17:36)
[2024-01-18 18:20] LABS: Osmolality Urine 235 mOsm/kg (300-900)
[2024-01-18] MEDS: APRESOLINE 5 MG IV (18:35)
[2024-01-18 18:39] LABS: Urine Sodium 92 mmol/L (30-90)
[2024-01-18] MEDS: TYLENOL 650 MG PO (20:36)
[2024-01-18] MEDS: MELATONIN 5 MG PO (20:37)
[2024-01-18] MEDS: DESYREL 50 MG PO (20:37)
[2024-01-18] MEDS: XANAX 0.5 MG PO (21:34)
[2024-01-19] VITALS (7 sets, daily range): BP systolic 89–153; BP diastolic 59–112
[2024-01-19] MEDS: MAXIPIME 2000 MG IV ×2 (05:01→17:17)
[2024-01-19] MEDS: STERILE WATER FOR INJECTION 10 ML IV ×2 (05:01→17:17)
[2024-01-19] MEDS: SYNTHROID 75 MCG PO (05:02)
[2024-01-19] MEDS: FLUSH (NSS) 2 FLUSH IV (05:12)
[2024-01-19] MEDS: TYLENOL 650 MG PO ×3 (06:24→21:37)
[2024-01-19] MEDS: COLACE 100 MG PO ×2 (08:04→20:30)
[2024-01-19] MEDS: SENOKOT 8.59999999999999964 MG PO ×2 (08:04→20:31)
[2024-01-19] MEDS: MUCINEX 600 MG PO ×2 (08:04→20:31)
[2024-01-19] MEDS: VISBIOME 1 CAP PO (08:04)
[2024-01-19] MEDS: DIFLUCAN 150 MG PO (08:04)
[2024-01-19 08:06] LABS: Blood Urea Nitrogen 12 mg/dl (7-17); Calcium 9.6 mg/dl (8.4-10.2); Carbon Dioxide 31 mmol/L (22-30); Chloride 90 mmol/L (98-107); Estimated Creatinine Clearance 60 ml/min; Glucose 100 mg/dl (70-99); Potassium 3.8 mmol/L (3.5-5.1); Sodium 130 mmol/L (135-145); eGFR > 60.00
[2024-01-19] MEDS: MIRALAX PO (08:08)
[2024-01-19] MEDS: ATROVENT NEBULES 0.5 MG INH ×3 (08:47→13:56)
[2024-01-19] MEDS: XOPENEX 1.25 MG INHALANT SOLUTION INH ×3 (08:47→20:41)
--- NOTE | 2024-01-19 11:10 | PTOTSP ---
ST Dysphagia Tx/Follow up
Known mild-moderate oral and moderate pharyngeal dysphagia; s/p VFSS 06/2023 suspect severity of dysphagia has progressed since then. Dysphonia; hoarse/breathy and hypophonic intermittently wet i/s/o laryngeal cx (1996) s/p chemo/XRT
Pt received awake/alert at the bedside. Self reported coughing when she was drinking thin liquids (current recommendations for mildly-thick liquids) and further difficulty with eating solids. Reports poor appetite/ability to take in enough PO.
Education provided re: rationale for repeat VFSS and progressive nature of dysphagia s/p head/neck cancer. Advised repeat VFSS however pt declined but she does feel ready to pursue feeding tube.
At this time, pt appears to be maintaining a comfort/pleasure-level PO intake and is unable to maintain primary means of nutrition/hydration by mouth.
Recommend
1. Continue Soft/bite-size solids (L6) and Mildly-thick liquids (L2) by spoon or small/single cup sip for pleasure/comfort purposes with consideration of screener perfumer enteral access (PEG) as 1' mean of nutrition/hydration/rx administration
2. Aspiration and KENNETH/reflux precautions - oral care prior/following PO intake
3. Use of swallow strategies: small bites and small/single sips of beverages/liquids, super-supraglottic swallow, L-head turn, throat clear, multiple swallow, and alternate liquids/solids
4. Meds oral whole/single with sips of mildly-thick liquids or placed in apple sauce
5. CAR BUILDER following; monitor diet tolerance, strategy training/education and repeat objective testing if pt agreeable (she is requesting this to be outpatient and will likely complete at outside [facility])
Spoke w/ RN re: tx findings and recommendations
[2024-01-19] MEDS: FLAGYL 500 MG 100 IV ×2 (15:04→21:29)
--- NOTE | 2024-01-19 15:31 | W.PN.HOSP.TC ---
Today's Communication/Plan
-
Flagyl
Zofran
GI eval for PEG
Assessment / Plan
Assessment / Plan
CVS: S1-S2 normal
Chest: few rales
Abdomen: Soft, NT / Bowel sounds present
Extremities: No edema, normal pulses
PROFESSIONAL NURSING TUTOR: Non focal exam
#Nausea- One time Zofran
#Acute hypoxic respiratory insufficiency -Due to pneumonia.� Oxygenation 95% on 2 L nasal cannula, wean down as able. COVID-19 and influenza negative.
#Septic shock due to aspiration pneumonia -with underlying chronic bronchiectasis.�
Chest x-ray shows right upper and right middle lobe pneumonia superimposed on chronic scarring and COPD. History of Klebsiella and Pseudomonas positive sputum.�
Continue IV cefepime, sputum cultures with normal paola. Add Flagyl. White count up.
Blood cultures negative so far.
#Chronic bronchiectasis/ILD - followed by pulmonary, Dr. Horton.� She started budesonide nebs this week with onset of her illness as well as albuterol nebs.
#Hyponatremia -studies consistent with SIADH. Will give a low dose Samsca
#Hypothyroidism -continue Synthroid. TSH 0.95.
#History of laryngeal cancer -s/p chemo, XRT 1996.
#Chronic dysphagia -suspect related to prior laryngeal cancer and treatment .� She was discharged from speech therapy recently.� On a soft diet with thin liquids at home.� Assessed by speech therapy here, recommendation made for soft/bite sized
solids, mildly thick liquids by spoon or small single cup sips.
Per discussion with speech therapist today patient has progressive dysphagia. Patient also reports that pulmonary had recommended that she get a PEG tube as outpatient. She is seen Dr. Rojas as outpatient, she states that she is not able to eat
much because of aspiration and requesting to proceed with PEG tube.
Contacted Dr. Rojas who recommended GI evaluation for PEG tube surgery will coordinate with GI.
# Moderate protein calorie malnutrition because of patient's poor p.o. intake secondary to dysphagia
#History of breast cancer -s/p lumpectomy.
#History of bowel obstruction
#History of hepatitis C- treated and cured.
#Ex-smoker
#Full code
Discussed with niece at bedside
D/W
D/W Rn
D/w Pharmacy re dose of Samsca
Anticipated Discharge: > 48 hours
Subjective/Interval History
-
Date of Service: January 19, 2024
Objective Data
-
Labs:
Laboratory Results
01/19/24
06:40
Sodium 130 L
Potassium 3.8
Chloride 90 L
Carbon Dioxide 31 H
BUN 12
Creatinine 0.7
Glucose 100 H
Calcium 9.6
Vital Signs:
Vital Signs
Temp Pulse Resp BP Pulse Ox
98.0 F 73 16 133/91 97
01/19/24 11:14 01/19/24 14:05 01/19/24 14:05 01/19/24 11:14 01/19/24 14:05
I&O
01/18/24 01/19/24 01/20/24
06:59 06:59 06:59
Intake Total 120 / 120 240 / 240
Output Total 200 / 200
Balance 120 / 120 40 / 40
[2024-01-19] MEDS: ZOFRAN 4 MG IV ×2 (15:46→20:36)
--- NOTE | 2024-01-19 16:33 | CM ---
Pt is on new oxygen . Will need home oxygen test at dc.
GI involved .Recommenced Peg tube.
Pt unsure of her dc dispo.
Will continue to assess and assist with dc plan.
PLAN will depend on hospital course
--- NOTE | 2024-01-19 17:04 | W.PN.PUL3 ---
Today's Communication / Plan
-
Continue antibiotics cefepime/Flagyl
Secretion clearance intervention will continue
Wean down oxygen
Eventual PEG tube placement
Assessment
-
63-year-old female with history of recurrent pneumonia, Pseudomonas/streptococcal pneumonia in the past, aspiration syndrome with ongoing speech and swallow therapy as outpatient, history of head and neck/laryngeal cancer with radiation/chemotherapy
, presents with increased symptoms for 5 days. Chest x-ray confirms acute pneumonia on the right side. Patient admitted with antibiotics. Episode of hypotension through the night noted, responded to IV fluids
Acute right-sided pneumonia, suspected community-acquired
Sepsis, hypotension
Responded to IV fluids
History of recurrent pneumonia
Klebsiella/Pseudomonas/streptococcal
Hyponatremia, improved
Interstitial lung disease/bronchiectasis
Conditions present prior to admission
Hypothyroidism
History of laryngeal cancer status postchemotherapy/XRT in 1996
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
History of breast cancer 2020 left side
Lumpectomy
History for recurrent bowel obstruction, last 2002
Chronic dysphagia/aspiration syndrome
[id number] history of smoking, quit
Family history of breast cancer
Plan/recommendations
Respiratory status not completely back to baseline.
Continue with secretion clearance interventions.
Continue with supplemental oxygen-2 L of supplemental oxygen. New for her in the setting of these bout of pneumonia due to aspiration.
Continue to wean down to off as able.
-
Chest x-ray with clear acute right-sided infiltrate.
Patient is not on chronic steroid therapy. Has been on nebulized therapy in the past but does not take regularly, only takes with flareups.
-
Continue current antibiotics with IV cefepime. Flagyl was added per primary team.
Leukocytosis improving.
Patient feels chills at night. No fever documented.
-
Follow sputum culture-normal respiratory paola
So far blood cultures negative
-
Continue secretion clearance interventions:
Nebulizers:-Ipratropium/Xopenex via nebulizer
No need for systemic or nebulized steroids. Apparently patient has developed thrush in the past.
Continue with airway clearance, Acapella/incentive spirometry
-
Patient does have history of hemoptysis. Will hold on vest therapy for now as she is subjectively improved
Continue with aspiration precautions-patient reports having an episode of choking last night.
PEG tube has been recommended.
Patient is now more agreeable.
GI has been consulted.
-
Dr. Turner updated patient in detail on 01/18/2024. Not ready for discharge yet.
-
Reviewed with primary service,
-
Will follow
Subjective Data
-
Date of Service:
Date of Service: January 19, 2024
Chief Complaint: Pulmonary Follow Up (Severe pneumonia-hypoxemic respiratory failure)
Subjective:
No new complaints
Continues to have difficulty swallowing
Denies hemoptysis
Continues to have coughing with intermittent phlegm production.
Review of Systems
General: Fever (n)
Cardiopulmonary: Dyspnea, Cough and Chest Pain (n)
GI: Abdominal Pain (n), Nausea and Vomiting (n)
Objective Data
Data Reviewed
Vital Signs / I&O / Oxygen:
Vital Signs
Temp Pulse Resp BP Pulse Ox
98.0 F 81 18 126/90 92
01/19/24 15:37 01/19/24 15:37 01/19/24 15:37 01/19/24 15:37 01/19/24 15:37
Intake and Output
01/18/24 01/19/24 01/20/24
06:59 06:59 06:59
Intake Total 120 / 120 240 / 240
Output Total 200 / 200
Balance 120 / 120 40 / 40
SaO2 92
Nasal Cannula flow liters per 1
minute
Physical Exam
General: Respiratory Distress (Mild with conversation)
HEENT: Normocephalic
Cardiovascular: S1-S2 and Regular Rhythm
Respiratory: Wheeze (n), Crackles (Right base) and Rhonchi (Mild bilaterally)
GI: Soft and Non Distended
Neurology: Awake, Alert, Oriented, AO x 3 and No Motor Deficits
Skin: Warm
Labs/Micro/Reports
Lab Data
01/18/24 09:56
01/19/24 06:40
Microbiology
01/15/24 13:40 Blood/Venous Blood Culture - Preliminary
No Growth in 4 days- Final report to follow
01/15/24 11:54 Blood/Venous Blood Culture - Preliminary
No Growth in 4 days- Final report to follow
01/17/24 09:24 Sputum Respiratory Culture - Final
Usual Respiratory Paola
01/17/24 09:24 Sputum Gram Stain - Final
01/15/24 17:14 Nose MRSA Screen - Final
No Methicillin Resistant Staphylococcus aureus isolated.
[2024-01-19] MEDS: SAMSCA 7.5 MG PO (17:17)
[2024-01-19] MEDS: LOVENOX 40 MG SC (17:17)
[2024-01-19] MEDS: MELATONIN 5 MG PO (21:37)
[2024-01-19] MEDS: XANAX 0.5 MG PO (21:41)
[2024-01-19] MEDS: DESYREL 50 MG PO (21:41)
[2024-01-20] VITALS (7 sets, daily range): BP systolic 91–149; BP diastolic 63–103; BMI 17.4
[2024-01-20] MEDS: MAXIPIME 2000 MG IV ×2 (03:13→15:05)
[2024-01-20] MEDS: STERILE WATER FOR INJECTION 10 ML IV ×2 (03:14→15:06)
[2024-01-20] MEDS: FLAGYL 500 MG 100 IV ×3 (05:30→21:05)
[2024-01-20] MEDS: SYNTHROID 75 MCG PO (05:31)
[2024-01-20] MEDS: ZOFRAN 4 MG IV ×3 (06:07→20:17)
[2024-01-20] MEDS: XOPENEX 1.25 MG INHALANT SOLUTION INH ×3 (07:39→19:37)
[2024-01-20] MEDS: ATROVENT NEBULES 0.5 MG INH ×3 (07:39→19:37)
[2024-01-20 08:05] LABS: Hematocrit 37.9 % (37.0-47.0); Hemoglobin 12.8 g/dL (12.0-16.0); Mean Corp Hgb Conc. 33.8 g/dL (33.0-37.0); Mean Corpuscular Volume 82.9 fL (81.0-99.0); Mean Platelet Volume 10.9 fL (7.4-10.4); Platelet Count 338 10^3/uL (130-400); Red Blood Cell Count 4.57 10^6/uL (4.20-5.40); Red Cell Dist. Width 13.9 % (11.5-14.5); White Blood Cell Count 8.3 10^3/uL (4.8-10.8)
[2024-01-20 08:07] LABS: PT 14.2 Sec (11.4-14.6)
[2024-01-20 08:08] LABS: APTT 33.2 Sec (23.4-35.0)
[2024-01-20] MEDS: DIFLUCAN 150 MG PO (08:32)
[2024-01-20] MEDS: MIRALAX 17 GRAMS PO (08:32)
[2024-01-20] MEDS: COLACE 100 MG PO ×2 (08:32→20:07)
[2024-01-20] MEDS: MUCINEX 600 MG PO ×2 (08:33→20:07)
[2024-01-20] MEDS: SENOKOT 8.59999999999999964 MG PO ×2 (08:33→20:07)
[2024-01-20] MEDS: VISBIOME 1 CAP PO (08:33)
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
[2024-01-20 10:02] LABS: Blood Urea Nitrogen 13 mg/dl (7-17); Calcium 9.5 mg/dl (8.4-10.2); Carbon Dioxide 31 mmol/L (22-30); Chloride 94 mmol/L (98-107); Estimated Creatinine Clearance 45 ml/min; Glucose 123 mg/dl (70-99); Magnesium 2.1 mg/dl (1.6-2.3); Potassium 3.9 mmol/L (3.5-5.1); Sodium 134 mmol/L (135-145); eGFR > 60.00
--- NOTE | 2024-01-20 12:15 | W.PN.PUL3 ---
Today's Communication / Plan
-
Cont. ABX
Wean off oxygen
Cont. Secretion clearance
Eventual PEG
will sign off.
Assessment
-
63-year-old female with history of recurrent pneumonia, Pseudomonas/streptococcal pneumonia in the past, aspiration syndrome with ongoing speech and swallow therapy as outpatient, history of head and neck/laryngeal cancer with radiation/chemotherapy
, presents with increased symptoms for 5 days. Chest x-ray confirms acute pneumonia on the right side. Patient admitted with antibiotics. Episode of hypotension through the night noted, responded to IV fluids
Acute right-sided pneumonia, suspected community-acquired
Sepsis, hypotension
Responded to IV fluids
History of recurrent pneumonia
Klebsiella/Pseudomonas/streptococcal
Hyponatremia, improved
Interstitial lung disease/bronchiectasis
Conditions present prior to admission
Hypothyroidism
History of laryngeal cancer status postchemotherapy/XRT in 1996
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
History of breast cancer 2020 left side
Lumpectomy
History for recurrent bowel obstruction, last 2002
Chronic dysphagia/aspiration syndrome
[id number] history of smoking, quit
Family history of breast cancer
Plan/recommendations
Continues to slowly improve.
-
Continue with secretion clearance interventions.
Continue with supplemental oxygen-2 L of supplemental oxygen. New for her in the setting of these bout of pneumonia due to aspiration.
Continue to wean down to off as able, check home oxygen assessment in AM
-
Chest x-ray with clear acute right-sided infiltrate.
Patient is not on chronic steroid therapy.
Has been on nebulized therapy in the past but does not take regularly, only takes with flareups.
Not bronchospastic on exam.
-
Continue current antibiotics with IV cefepime. Flagyl was added per primary team.
Complete total of 7 days until 01/21/2024. Seems to be responding.
Leukocytosis improving.
No fever documented.
-
Follow sputum culture-normal respiratory paola
So far blood cultures negative
-
Continue secretion clearance interventions:
Nebulizers:-Ipratropium/Xopenex via nebulizer while recovering from infection, for secretion clearance.
No need for systemic or nebulized steroids. Apparently patient has developed thrush in the past.
Continue with airway clearance, Acapella/incentive spirometry
-
Patient does have history of hemoptysis. Will hold on vest therapy for now as she is subjectively improved
Continue with aspiration precautions-patient reports having an episode of choking last night.
PEG tube has been recommended.
Patient is now more agreeable.
GI has been consulted - discussing with patient risk and benefits.
-
Dr. Turner updated patient in detail on 01/18/2024. Not ready for discharge yet.
-
Reviewed with primary service,
-
No additional recommendations from the pulmonary perspectvie.
will need outpx radiographic follow up.
-
Follow up with Dr. Horton after DC in 2-3 weeks.
Subjective Data
-
Date of Service:
Date of Service: January 20, 2024
Chief Complaint: Pulmonary Follow Up (Severe pneumonia-hypoxemic respiratory failure)
Subjective:
No new pulmonary complaints.
Able to expectorate
Denies hemoptysis.
Review of Systems
General: Fever (n)
Cardiopulmonary: Dyspnea (none at rest)
GI: Abdominal Pain (n), Nausea (n) and Vomiting (n)
Neuro: Headache (n)
Objective Data
Data Reviewed
Vital Signs / I&O / Oxygen:
Vital Signs
Temp Pulse Resp BP Pulse Ox
97.8 F 90 18 139/103 95
01/20/24 11:00 01/20/24 11:00 01/20/24 11:00 01/20/24 11:00 01/20/24 11:00
Intake and Output
01/19/24 01/20/24 01/21/24
06:59 06:59 06:59
Intake Total 240 / 240 960 / 960
Output Total 200 / 200
Balance 40 / 40 960 / 960
SaO2 95
Nasal Cannula flow liters per 1
minute
Physical Exam
General: Respiratory Distress (Mild with conversation)
HEENT: Normocephalic
Cardiovascular: S1-S2 and Regular Rhythm
Respiratory: Wheeze (n), Crackles (Right base) and Rhonchi (Mild bilaterally)
GI: Soft and Non Distended
Neurology: Awake, Alert, Oriented, AO x 3 and No Motor Deficits
Skin: Warm
Labs/Micro/Reports
Lab Data
01/20/24 07:33
01/20/24 07:33
Laboratory Results
01/20/24
07:33
PT 14.2
INR 1.10
APTT 33.2
Microbiology
01/15/24 11:54 Blood/Venous Blood Culture - Final
No Growth - Final Report
01/15/24 13:40 Blood/Venous Blood Culture - Preliminary
No Growth in 4 days- Final report to follow
01/17/24 09:24 Sputum Respiratory Culture - Final
Usual Respiratory Paola
01/17/24 09:24 Sputum Gram Stain - Final
01/15/24 17:14 Nose MRSA Screen - Final
No Methicillin Resistant Staphylococcus aureus isolated.
[2024-01-20] MEDS: FLUSH (NSS) 2 FLUSH IV ×2 (12:23→15:06)
[2024-01-20] MEDS: COMPAZINE 5 MG IV ×2 (15:05→21:11)
--- NOTE | 2024-01-20 16:33 | W.PN.HOSP.TC ---
Today's Communication/Plan
-
PEG tomorrow
Assessment / Plan
Assessment / Plan
CVS: S1-S2 normal
Chest: CTA
Abdomen: Soft, NT / Bowel sounds present
Extremities: No edema, normal pulses
DIRECT CHILL CASTER: Non focal exam
#Acute hypoxic respiratory insufficiency -Due to Aspiration pneumonia.� Oxygenation 95% on 2 L nasal cannula, wean down as able. COVID-19 and influenza negative.
Off O2
#Septic shock due to aspiration pneumonia -with underlying chronic bronchiectasis.�
Chest x-ray shows right upper and right middle lobe pneumonia superimposed on chronic scarring and COPD. History of Klebsiella and Pseudomonas positive sputum.�
Continue IV cefepime and flagyl, sputum cultures with normal paola. White count resolved.
Blood cultures negative so far.
#Chronic dysphagia -suspect related to prior laryngeal cancer and treatment .� She was discharged from speech therapy recently.� On a soft diet with thin liquids at home.� Assessed by speech therapy here, recommendation made for soft/bite sized
solids, mildly thick liquids by spoon or small single cup sips.
Per discussion with speech therapist patient has progressive dysphagia. Patient also reports that pulmonary had recommended that she get a PEG tube as outpatient. She is seen Dr. Rojas as outpatient, she states that she is not able to eat much
because of aspiration and requesting to proceed with PEG tube.
Contacted Dr. Rojas who recommended GI evaluation for PEG tube surgery will coordinate with GI.
GI planning for PEG tomorrow
#Chronic bronchiectasis/ILD - followed by pulmonary, Dr. Horton.� She started budesonide nebs last week with onset of her illness as well as albuterol nebs.
#Hyponatremia -studies consistent with SIADH. Better with Samsca
#Hypothyroidism -continue Synthroid. TSH 0.95.
#History of laryngeal cancer -s/p chemo, XRT 1996.
# Moderate protein calorie malnutrition because of patient's poor p.o. intake secondary to dysphagia
#History of breast cancer -s/p lumpectomy.
#History of bowel obstruction
#History of hepatitis C- treated and cured.
#Ex-smoker
#Full code
Called friend Geovanna per pt request. Went to message
[phone]
She did not want me to talk to anyone else. Says her son is aware about what is going on
Anticipated Discharge: 24 - 48 hours
Subjective/Interval History
-
Date of Service: January 20, 2024
Objective Data
-
Labs:
Laboratory Results
01/20/24
07:33
WBC 8.3
Hgb 12.8
Hct 37.9
Plt Count 338
PT 14.2
INR 1.10
APTT 33.2
Sodium 134 L
Potassium 3.9
Chloride 94 L
Carbon Dioxide 31 H
BUN 13
Creatinine 0.9
Glucose 123 H
Calcium 9.5
Vital Signs:
Vital Signs
Temp Pulse Resp BP Pulse Ox
98 F 84 18 121/80 94
01/20/24 15:00 01/20/24 15:00 01/20/24 15:00 01/20/24 15:00 01/20/24 15:00
I&O
01/19/24 01/20/24 01/21/24
06:59 06:59 06:59
Intake Total 240 / 240 960 / 960
Output Total 200 / 200
Balance 40 / 40 960 / 960
[2024-01-20] MEDS: LOVENOX 40 MG SC (17:28)
[2024-01-20] MEDS: DESYREL 50 MG PO (21:06)
[2024-01-20] MEDS: XANAX 0.5 MG PO (21:06)
[2024-01-20] MEDS: MELATONIN 5 MG PO (21:06)
[2024-01-21] VITALS (15 sets, daily range): BP systolic 100–179; BP diastolic 65–117; BMI 17.3
[2024-01-21] MEDS: FLAGYL 500 MG 100 IV ×3 (05:34→21:47)
[2024-01-21] MEDS: STERILE WATER FOR INJECTION 10 ML IV ×2 (05:35→18:06)
[2024-01-21] MEDS: MAXIPIME 2000 MG IV ×2 (05:36→18:06)
[2024-01-21] MEDS: SYNTHROID 75 MCG PO (05:37)
[2024-01-21] MEDS: ZOFRAN 4 MG IV ×2 (05:42→15:01)
[2024-01-21] MEDS: XOPENEX 1.25 MG INHALANT SOLUTION INH ×3 (07:17→19:33)
[2024-01-21] MEDS: ATROVENT NEBULES INH ×2 (07:17→13:16)
[2024-01-21 07:34] LABS: Hematocrit 37.5 % (37.0-47.0); Hemoglobin 12.8 g/dL (12.0-16.0); Mean Corp Hgb Conc. 34.1 g/dL (33.0-37.0); Mean Corpuscular Hgb 27.6 pg (27.0-31.0); Mean Platelet Volume 10.3 fL (7.4-10.4); Platelet Count 385 10^3/uL (130-400); Red Blood Cell Count 4.63 10^6/uL (4.20-5.40); Red Cell Dist. Width 14.2 % (11.5-14.5); White Blood Cell Count 9.5 10^3/uL (4.8-10.8)
[2024-01-21 08:26] LABS: Blood Urea Nitrogen 16 mg/dl (7-17); Calcium 9.4 mg/dl (8.4-10.2); Carbon Dioxide 28 mmol/L (22-30); Chloride 98 mmol/L (98-107); Estimated Creatinine Clearance 40 ml/min; Glucose 101 mg/dl (70-99); Sodium 131 mmol/L (135-145); eGFR > 60.00
--- NOTE | 2024-01-21 13:57 | PTCARENOTE ---
received patient post peg tube placement- assisted to bed. Mild pain in abdomen at peg tube site. site with gauze dressing dry and intact. Vitals noted. bp elevated, checked manually 140/104. Dr Andino aware- verbal instructed nurse to continue to
monitor. [patient continues with moist cough. no resp distress noted. plan of care on going.
[2024-01-21] MEDS: FLUSH (NSS) 2 FLUSH IV (14:56)
--- NOTE | 2024-01-21 16:30 | W.PN.HOSP.TC ---
Today's Communication/Plan
-
Tube feeding recommendations per dietary
Start feeding via PEG tube when okay with GI
Assessment / Plan
Assessment / Plan
CVS: S1-S2 normal
Chest: CTA
Abdomen: Soft, PEG tube in, Bowel sounds present
Extremities: No edema, normal pulses
NUCLEAR SCIENTIST: Non focal exam
#Acute hypoxic respiratory insufficiency -Due to Aspiration pneumonia.� Oxygenation 95% on 2 L nasal cannula, wean down as able. COVID-19 and influenza negative.
Off O2
#Septic shock due to aspiration pneumonia -with underlying chronic bronchiectasis.�
Chest x-ray shows right upper and right middle lobe pneumonia superimposed on chronic scarring and COPD. History of Klebsiella and Pseudomonas positive sputum.�
Continue IV cefepime and flagyl, sputum cultures with normal paola. White count normalised.
Blood cultures negative so far.
#Chronic dysphagia -suspect related to prior laryngeal cancer and treatment .� She was discharged from speech therapy recently.� On a soft diet with thin liquids at home.� Assessed by speech therapy here, recommendation made for soft/bite sized
solids, mildly thick liquids by spoon or small single cup sips.
Per discussion with speech therapist patient has progressive dysphagia. Patient also reports that pulmonary had recommended that she get a PEG tube as outpatient. She is seen Dr. Rojas as outpatient, she states that she is not able to eat much
because of aspiration and requesting to proceed with PEG tube.
PEG Placed 01/21/24
#Chronic bronchiectasis/ILD - followed by pulmonary, Dr. Horton.� She started budesonide nebs last week with onset of her illness as well as albuterol nebs.
#Hyponatremia -studies consistent with SIADH. Better with Samsca
FR
#Hypothyroidism -continue Synthroid. TSH 0.95.
#History of laryngeal cancer -s/p chemo, XRT 1996.
# Moderate protein calorie malnutrition because of patient's poor p.o. intake secondary to dysphagia
PEG tube placed
Dietary consulted for tube feed recommendations
Bolus versus nighttime tube feedings may be better for this patient
#History of breast cancer -s/p lumpectomy.
#History of bowel obstruction
#History of hepatitis C- treated and cured.
#Ex-smoker
#Full code
D/W Friend at bed side
D/W RN
D/W Pulm and GI
Anticipated Discharge: 24 - 48 hours
Subjective/Interval History
-
Date of Service: January 21, 2024
Objective Data
-
Labs:
Laboratory Results
01/21/24
07:23
WBC 9.5
Hgb 12.8
Hct 37.5
Plt Count 385
Sodium 131 L
Potassium 4.0
Chloride 98
Carbon Dioxide 28
BUN 16
Creatinine 1.0
Glucose 101 H
Calcium 9.4
Vital Signs:
Vital Signs
Temp Pulse Resp BP Pulse Ox
97.5 F 96 18 144/113 96
01/21/24 15:30 01/21/24 15:30 01/21/24 15:30 01/21/24 15:30 01/21/24 15:30
I&O
01/20/24 01/21/24 01/22/24
06:59 06:59 06:59
Intake Total 960 / 960 1180 / 1180
Balance 960 / 960 1180 / 1180
--- NOTE | 2024-01-21 17:30 | PTCARENOTE ---
patient with elevated BP- 170/96- room mate with loud visitors, one being a young child. asked visitors to go to [facility] [place]. BP [id number]. Dr Thu holder.
--- NOTE | 2024-01-21 17:33 | W.PN.UPDATE ---
Update Note
Progress Note Update
Discussed EGD findings with patient and her friend who is a nurse at bedside. Told her she does have a proximal esophageal stricture most likely from prior radiation which is most likely the etiology for her underlying worsening symptoms of
dysphagia and aspiration. Use PEG tube for feeds starting tomorrow morning and also patient may benefit from gradual dilatations for the stricture to help her with p.o. intake, patient will think about it and will schedule as outpatient if she
decides to proceed with EGD with dilatations.
[2024-01-21] MEDS: MIRALAX PO (18:05)
[2024-01-21] MEDS: DIFLUCAN 150 MG PO (18:05)
[2024-01-21] MEDS: MUCINEX PO (18:05)
[2024-01-21] MEDS: COLACE PO (18:05)
[2024-01-21] MEDS: SENOKOT PO (18:05)
[2024-01-21] MEDS: LOVENOX 40 MG SC (18:06)
[2024-01-21] MEDS: VISBIOME 1 CAP PO (18:06)
[2024-01-21] MEDS: ATROVENT NEBULES 0.5 MG INH (19:32)
[2024-01-21] MEDS: MUCINEX 600 MG PO (20:31)
[2024-01-21] MEDS: SENOKOT 8.59999999999999964 MG PO (20:31)
[2024-01-21] MEDS: COLACE 100 MG PO (20:32)
[2024-01-21] MEDS: DESYREL 50 MG PO (20:32)
[2024-01-21] MEDS: MELATONIN 5 MG PO (20:32)
[2024-01-21] MEDS: TYLENOL 650 MG PO (20:36)
[2024-01-21] MEDS: XANAX 0.5 MG PO (20:36)
[2024-01-22] MEDS: MAXIPIME 2000 MG IV ×2 (03:39→15:47)
[2024-01-22] MEDS: STERILE WATER FOR INJECTION 10 ML IV ×2 (03:39→15:47)
[2024-01-22] MEDS: ZOFRAN 4 MG IV ×2 (03:53→23:10)
[2024-01-22 04:20] VITALS: BMI 17.0
[2024-01-22 04:24] VITALS: BP 130/92
[2024-01-22] MEDS: FLAGYL 500 MG 100 IV ×3 (05:24→21:51)
[2024-01-22] MEDS: SYNTHROID 75 MCG PO (06:36)
[2024-01-22] MEDS: ATROVENT NEBULES 0.5 MG INH (07:10)
[2024-01-22] MEDS: XOPENEX 1.25 MG INHALANT SOLUTION INH ×2 (07:10→13:36)
[2024-01-22 07:43] LABS: Hematocrit 38.2 % (37.0-47.0); Hemoglobin 13.3 g/dL (12.0-16.0)
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
[2024-01-22 08:21] LABS: Blood Urea Nitrogen 25 mg/dl (7-17); Calcium 9.6 mg/dl (8.4-10.2); Carbon Dioxide 28 mmol/L (22-30); Chloride 94 mmol/L (98-107); Estimated Creatinine Clearance 39 ml/min; Glucose 101 mg/dl (70-99); Magnesium 1.9 mg/dl (1.6-2.3); Phosphorus 3.4 mg/dl (2.5-4.5); Potassium 3.7 mmol/L (3.5-5.1); Sodium 132 mmol/L (135-145); eGFR > 60.00
[2024-01-22 08:22] VITALS: BP 154/102
[2024-01-22] MEDS: MUCINEX 600 MG PO ×2 (08:54→20:43)
[2024-01-22] MEDS: MIRALAX 17 GRAMS PO (08:54)
[2024-01-22] MEDS: VISBIOME 1 CAP PO (08:54)
[2024-01-22] MEDS: SENOKOT 8.59999999999999964 MG PO ×2 (08:54→20:43)
[2024-01-22] MEDS: COLACE 100 MG PO ×2 (08:54→20:43)
[2024-01-22] MEDS: DIFLUCAN 150 MG PO (08:54)
--- NOTE | 2024-01-22 10:15 | PTOTSP ---
ST Dysphagia follow up
Known mild-moderate oral and moderate pharyngeal dysphagia; s/p VFSS 06/2023 suspect severity of dysphagia has progressed since then. Now s/p PEG . Dysphonia; hoarse/breathy and hypophonic intermittently wet i/s/o laryngeal cx (1996) s/p chemo/XRT
Pt received awake/alert sitting up in chair s/p PEG placement . Reviewed EGD findings of stricture and recommended dilation. Pt stated she will plan to schedule as outpatient. Reiterated rationale for repeat VFSS; pt verbalized and confirmed
information provided and stated she will also schedule this either at or [place] as outpatient.
Recommend
1. Continue Soft/bite-size solids (L6) and Mildly-thick liquids (L2) by spoon or small/single cup sip to supplement tube feeding via PEG as 1' mean of nutrition/hydration/rx administration
2. Aspiration and KENNETH/reflux precautions - oral care prior/following PO intake
3. Use of swallow strategies from recent VFSS 06/2023: small bites and small/single sips of beverages/liquids, super-supraglottic swallow, L-head turn, throat clear, multiple swallow, and alternate liquids/solids
4. Meds oral whole/single with sips of mildly-thick liquids or placed in apple sauce or via PEG
5. No further acute INDUSTRIAL MAINTENANCE TECHNICIAN needs advised repeat objective testing as outpatient
--- NOTE | 2024-01-22 11:15 | PTCARENOTE ---
Jevity 1.5 tube feeding started as ordered via PEG tube. Rate of 10ml/hr with 10ml/hr water flush. Patient educated with medication administration via peg tube. Will continue to monitor.
[2024-01-22 11:29] VITALS: BP 146/109
[2024-01-22] MEDS: ATROVENT NEBULES INH (13:36)
--- NOTE | 2024-01-22 14:39 | W.PN.HOSP.TC ---
Today's Communication/Plan
-
Once tube feeds are at goal we can discharge her as long as arrangements made for tube feeds as outpatient
Prescription provided
Can stop cefepime after today
Stop Flagyl at discharge
Aspiration precautions discussed. Patient uses a wedge pillow at home
Assessment / Plan
Assessment / Plan
CVS: S1-S2 normal
Chest: CTA
Abdomen: Soft, PEG tube in, Bowel sounds present
Extremities: No edema, normal pulses
FIELD REPRESENTATIVE: Non focal exam
#Acute hypoxic respiratory insufficiency -Due to Aspiration pneumonia.� COVID-19 and influenza negative.
Off O2
#Septic shock due to aspiration pneumonia -with underlying chronic bronchiectasis.�
Chest x-ray shows right upper and right middle lobe pneumonia superimposed on chronic scarring and COPD. History of Klebsiella and Pseudomonas positive sputum.�
Continue IV flagyl,
Stop Cefepime after today
Blood cultures negative so far.
#Chronic dysphagia -suspect related to prior laryngeal cancer and treatment .� She was discharged from speech therapy recently.� On a soft diet with thin liquids at home.� Assessed by speech therapy here, recommendation made for soft/bite sized
solids, mildly thick liquids by spoon or small single cup sips.
Per discussion with speech therapist patient has progressive dysphagia. Patient also reports that pulmonary had recommended that she get a PEG tube as outpatient. She is seen Dr. Rojas as outpatient, she states that she is not able to eat much
because of aspiration and requesting to proceed with PEG tube.
PEG Placed 01/21/24
TF started Jevety 1.5
Patient needs 4 cans of bolus tube feeds at home. Prescription given to case management
# Borderline elevation in blood pressure-discussed about antihypertensives. Patient does not want to start antihypertensives yet.
#Chronic bronchiectasis/ILD - followed by pulmonary, Dr. Horton.� She started budesonide nebs last week with onset of her illness as well as albuterol nebs.
#Hyponatremia -studies consistent with SIADH. Better with Samsca
FR
#Hypothyroidism -continue Synthroid. TSH 0.95.
#History of laryngeal cancer -s/p chemo, XRT 1996.
# Moderate protein calorie malnutrition because of patient's poor p.o. intake secondary to dysphagia
PEG tube placed
#History of breast cancer -s/p lumpectomy.
#History of bowel obstruction
#History of hepatitis C- treated and cured.
#Ex-smoker
#Full code
Discussed with case management
D/W RN
D/W dietitian
Anticipated Discharge: Within 24 hours
Subjective/Interval History
-
Date of Service: January 22, 2024
Objective Data
-
Labs:
Laboratory Results
01/22/24
07:06
Hgb 13.3
Hct 38.2
Sodium 132 L
Potassium 3.7
Chloride 94 L
Carbon Dioxide 28
BUN 25 H
Creatinine 1.0
Glucose 101 H
Calcium 9.6
Vital Signs:
Vital Signs
Temp Pulse Resp BP Pulse Ox
97.5 F 86 18 146/109 97
01/22/24 11:29 01/22/24 11:29 01/22/24 11:29 01/22/24 11:29 01/22/24 11:29
I&O
01/21/24 01/22/24 01/23/24
06:59 06:59 06:59
Intake Total 1180 / 1180 1660 / 1660
Balance 1180 / 1180 1660 / 1660
[2024-01-22 15:11] VITALS: BP 167/115
--- NOTE | 2024-01-22 17:07 | CM ---
CM following re: d/c planning
Chart reviewed
Pt discharge anticipated once enteral feeding/supplies are delivered
CM spoke with Geovanna from [facility] who was to verify pt benefits regarding supplies/medications and provide info to CM when available
CM faxed clinicals to [facility] per liaison's request
CM also placed a SN referral with [facility] to manage the alf piece and administration of eternal feeds
One antibiotic was stopped and the other to stop at d/c
CM will continue to follow patient's progress and assist with continued d/c needs as indicated
PLAN; d/c home with home care provided by [facility]
[2024-01-22] MEDS: LOVENOX 40 MG SC (17:30)
[2024-01-22] MEDS: MELATONIN 5 MG PO ×2 (20:43→21:51)
[2024-01-22] MEDS: DESYREL 50 MG PO (21:51)
[2024-01-22 23:59] VITALS: BP 95/71
[2024-01-23] MEDS: MAXIPIME 2000 MG IV (05:29)
[2024-01-23] MEDS: FLAGYL 500 MG 100 IV ×2 (05:29→13:22)
[2024-01-23] MEDS: STERILE WATER FOR INJECTION 10 ML IV (05:29)
[2024-01-23] MEDS: SYNTHROID 75 MCG PO (05:30)
[2024-01-23] MEDS: ZOFRAN 4 MG IV ×2 (05:43→12:34)
[2024-01-23 06:00] VITALS: BMI 17.0
[2024-01-23 07:24] VITALS: BP 141/91
[2024-01-23] MEDS: COLACE 100 MG PO ×2 (08:49→19:54)
[2024-01-23] MEDS: DIFLUCAN 150 MG PO (08:50)
[2024-01-23] MEDS: MUCINEX 600 MG PO ×2 (08:52→19:54)
[2024-01-23] MEDS: VISBIOME 1 CAP PO (08:53)
[2024-01-23] MEDS: SENOKOT 8.59999999999999964 MG PO ×2 (08:53→19:54)
[2024-01-23] MEDS: MIRALAX 17 GRAMS PO (08:54)
[2024-01-23 09:25] LABS: Blood Urea Nitrogen 26 mg/dl (7-17); Calcium 9.9 mg/dl (8.4-10.2); Carbon Dioxide 27 mmol/L (22-30); Estimated Creatinine Clearance 44 ml/min; Glucose 112 mg/dl (70-99); Potassium 3.6 mmol/L (3.5-5.1); Sodium 131 mmol/L (135-145); eGFR > 60.00
[2024-01-23 09:39] LABS: Chloride 96 mmol/L (98-107); Phosphorus 3.8 mg/dl (2.5-4.5)
--- NOTE | 2024-01-23 13:31 | W.PN.HOSP.TC ---
Today's Communication/Plan
-
Awaiting case management to arranged TF for discharge
Treat constipation
Assessment / Plan
Assessment / Plan
CVS: S1-S2 normal
Chest: rales, cough
Abdomen: Soft, PEG tube in, Bowel sounds present
Extremities: No edema, normal pulses
LAG SCREWER: Non focal exam
#Acute hypoxic respiratory insufficiency -Due to Aspiration pneumonia.� COVID-19 and influenza negative.
Off O2
#Septic shock due to aspiration pneumonia -with underlying chronic bronchiectasis.�
Chest x-ray shows right upper and right middle lobe pneumonia superimposed on chronic scarring and COPD. History of Klebsiella and Pseudomonas positive sputum.�
Continue IV flagyl,
Stop Cefepime
Blood cultures negative so far.
#Chronic dysphagia -suspect related to prior laryngeal cancer and treatment .� She was discharged from speech therapy recently.� On a soft diet with thin liquids at home.� Assessed by speech therapy here, recommendation made for soft/bite sized
solids, mildly thick liquids by spoon or small single cup sips.
Per discussion with speech therapist patient has progressive dysphagia. Patient also reports that pulmonary had recommended that she get a PEG tube as outpatient. She is seen Dr. Rojas as outpatient, she states that she is not able to eat much
because of aspiration and requesting to proceed with PEG tube.
PEG Placed 01/21/24
TF started Jevety 1.5
Patient needs 4 cans of bolus tube feeds at home. Prescription given to case management 01/22/24
Tolerating TF
#Constipation- Bowel regimen
# Borderline elevation in blood pressure-discussed about antihypertensives. Patient does not want to start antihypertensives yet.
#Chronic bronchiectasis/ILD - followed by pulmonary, Dr. Horton.� She started budesonide nebs last week with onset of her illness as well as albuterol nebs.
#Hyponatremia -studies consistent with SIADH.
FR
#Hypothyroidism -continue Synthroid. TSH 0.95.
#History of laryngeal cancer -s/p chemo, XRT 1996.
# Moderate protein calorie malnutrition because of patient's poor p.o. intake secondary to dysphagia
PEG tube placed 01/21/24
#History of breast cancer -s/p lumpectomy.
#History of bowel obstruction
#History of hepatitis C- treated and cured.
#Ex-smoker
#Full code
Discussed with case management
D/W RN
Anticipated Discharge: 24 - 48 hours
Subjective/Interval History
-
Date of Service: January 23, 2024
Objective Data
-
Labs:
Laboratory Results
01/23/24
07:05
Sodium 131 L
Potassium 3.6
Chloride 96 L
Carbon Dioxide 27
BUN 26 H
Creatinine 0.9
Glucose 112 H
Calcium 9.9
Vital Signs:
Vital Signs
Temp Pulse Resp BP Pulse Ox
97.8 F 92 18 141/91 96
01/23/24 07:24 01/23/24 07:24 01/23/24 07:24 01/23/24 07:24 01/23/24 07:24
I&O
01/22/24 01/23/24 01/24/24
06:59 06:59 06:59
Intake Total 1660 / 1660
Balance 1660 / 1660
[2024-01-23] MEDS: MILK OF MAGNESIA 30 ML PO (13:49)
[2024-01-23] MEDS: DULCOLAX 10 MG RECTAL (13:49)
--- NOTE | 2024-01-23 15:21 | CM ---
Chart reviewed and per Nasrin at [facility] they did receive a referral on Thursday afternoon however still checking patient's benefit though insurance for tube feeds at home, patient has been set up with [facility] visiting nurses.
Plan; Home with tube feeds from [facility], and [facility] visiting nurses.
[2024-01-23 15:31] VITALS: BP 152/112
[2024-01-23] MEDS: LOVENOX SC (17:29)
[2024-01-23] MEDS: MELATONIN 5 MG PO (19:54)
[2024-01-23] MEDS: DESYREL 50 MG PO (19:54)
[2024-01-23 23:00] VITALS: BP 70/56
[2024-01-23 23:05] VITALS: BP 60/43
[2024-01-23] MEDS: ProAmatine 10 MG PO (23:12)
[2024-01-23] MEDS: NSS 500 IV (23:12)
[2024-01-23 23:45] VITALS: BP 78/52
[2024-01-24 00:15] VITALS: BP 84/50
--- NOTE | 2024-01-24 00:34 | PTCARENOTE ---
Pt manual BP 60/43- pt asymptomatic, very drowsy but no complaints. Contacted [employer]- 250 bolus and midodrine ordered and given- BP now 84/52.
[2024-01-24 06:00] VITALS: BMI 17.8
[2024-01-24] MEDS: SYNTHROID 75 MCG PO (06:05)
[2024-01-24 07:14] VITALS: BP 83/62
[2024-01-24 07:17] LABS: Blood Urea Nitrogen 34 mg/dl (7-17); Calcium 10.7 mg/dl (8.4-10.2); Carbon Dioxide 31 mmol/L (22-30); Chloride 92 mmol/L (98-107); Estimated Creatinine Clearance 32 ml/min; Glucose 113 mg/dl (70-99); Magnesium 2.4 mg/dl (1.6-2.3); Phosphorus 4.6 mg/dl (2.5-4.5); Potassium 3.9 mmol/L (3.5-5.1); Sodium 130 mmol/L (135-145); eGFR 46.78
[2024-01-24] MEDS: VISBIOME 1 CAP PO (09:25)
[2024-01-24] MEDS: MIRALAX 17 GRAMS PO (09:25)
[2024-01-24] MEDS: MUCINEX 600 MG PO ×2 (09:25→20:16)
[2024-01-24] MEDS: SENOKOT 8.59999999999999964 MG PO ×2 (09:25→20:18)
[2024-01-24] MEDS: COLACE 100 MG PO ×2 (09:25→20:18)
[2024-01-24] MEDS: DIFLUCAN 150 MG PO (09:26)
[2024-01-24] MEDS: NSS 1000 IV ×2 (09:27→20:15)
[2024-01-24 09:37] LABS: Osmolality Serum 280 mOsm/kg (275-300)
[2024-01-24 11:42] VITALS: BP 100/65
[2024-01-24 14:01] LABS: Urine Albumin Negative (Neg - Trace); Urine Bilirubin Negative (Negative); Urine Character Clear (Clear); Urine Color Yellow; Urine Glucose Negative (Negative); Urine Ketone Negative (Negative); Urine Leukocyte Negative (Negative); Urine Nitrite Negative (Negative); Urine Occult Blood Negative (Negative); Urine Urobilinogen Negative (Neg - 1+)
[2024-01-24 14:27] LABS: Body Fluid for Eosinophils No Eosinophils seen
[2024-01-24 14:30] LABS: Urine Sodium < 5 mmol/L (30-90)
[2024-01-24 14:34] LABS: Osmolality Urine 188 mOsm/kg (300-900)
--- NOTE | 2024-01-24 14:48 | W.CON.NEPH ---
Consultation
-
Date/Time Consultation Requested: 01/24/2024 9 AM
Date/Time Consultation Performed: 01/24/2024 3 PM
Requesting Provider: Dr. Andino
Performing Provider: Dr. Emerson
Reason for Consultation: Hyponatremia, JULY
Medical History
-
Chief Complaint: Hyponatremia, JULY
History of Present Illness:
Pt is a 63yo F w/ Interstitial Lung Disease, Chronic Bronchiectasis, and recurrent pneumonia who is presenting to the ED c/o SOB x 5 days. She states she is short of breath at baseline but says this has increased significantly in the last 5 days,
and is worse in the last 2 days. She states that she uses nebulizers at home, but has increased frequency this past week and has added Budesonide. She states she developed a fever last night of 101F. She admits to chills and intercostal chest
discomfort x 5 days. She admits to sweats x 3 days. She admits to non-productive, moist sounding cough which she states is chronic over the last several years but has become worse in the last week. She admits to history of aspiration and is on a
modified diet of soft foods with thin liquids.� She denies known sick contacts. She is noted to have hyponatremia which appears to be chronic. In the last day her creatinine has increased from 0.9 up to 1.3 representing acute kidney injury she
also reports that her urine has become darker. She is currently on tube feeding
Past Medical History
Bronchiectasis / Interstitial Lung Disease
Hypothyroidism
Hepatitis C, clinically cured
Dysphagia
Laryngeal Cancer s/p Chemo and Radiation - 1996
Breast Cancer s/p Lumpectomy
Appendectomy
Cholecystectomy
Partial Hepatic Resection
Left Breast Lumpectomy
Social History
Tobacco: Former Smoker
Alcohol: None
Family History
Family History: Not Pertinent
Allergies / Home Medications
Allergy/AdvReac Type Severity Reaction Status Date / Time
No Known Allergies Allergy Verified 01/15/24 11:17
Medication Instructions Recorded Confirmed Type
levothyroxine 75 mcg tablet 75 mcg PO DAILY Thyroid 08/31/11 01/15/24 History
therapeutic multivitamin 1 tab PO DAILY Supplement ##0 01/04/18 01/15/24 History
trazodone 50 mg tablet 50 mg PO HS Mental Health/Anxiety 01/04/18 01/15/24 History
##0
alprazolam 0.5 mg tablet (Xanax) 0.5 mg PO HS Mental Health/Anxiety 01/15/24 01/15/24 History
estradiol 0.01% (0.1 mg/gram) 0 applic vaginal TUTH HORMONE 01/15/24 01/15/24 History
vaginal cream (Estrace)
fluconazole 150 mg tablet 150 mg PO DAILY Infection 01/15/24 01/15/24 History
ipratropium bromide 0.02 % 0.5 mg inhalation R Q6HPRN PRN sob 01/15/24 01/15/24 History
solution for inhalation
levalbuterol HCl 1.25 mg/3 mL 1.25 mg inhalation R Q8HPRN PRN sob 01/15/24 01/15/24 History
solution for nebulization
Review of Systems
-
Some lightheadedness this morning. No chest pain. No overt shortness of breath. Mild thirst. The remainder of the complete review of systems was negative
Physical Exam
Vital Signs
Vital Signs
Temp Pulse Resp BP Pulse Ox
98 F 81 16 100/65 94
01/24/24 07:14 01/24/24 11:42 01/24/24 07:14 01/24/24 11:42 01/24/24 11:42
Lab Results
WBC 9.5 10^3/uL (4.8-10.8) 01/21/24 07:23
RBC 4.63 10^6/uL (4.20-5.40) 01/21/24 07:23
Hgb 13.3 g/dL (12.0-16.0) 01/22/24 07:06
Hct 38.2 % (37.0-47.0) 01/22/24 07:06
Plt Count 385 10^3/uL (130-400) 01/21/24 07:23
Sodium 130 mmol/L (135-145) L 01/24/24 06:40
Potassium 3.9 mmol/L (3.5-5.1) 01/24/24 06:40
Chloride 92 mmol/L (98-107) L 01/24/24 06:40
Carbon Dioxide 31 mmol/L (22-30) H 01/24/24 06:40
BUN 34 mg/dl (7-17) H 01/24/24 06:40
Creatinine 1.3 mg/dL (0.6-1.0) H 01/24/24 06:40
eGFR 46.78 01/24/24 06:40
Glucose 113 mg/dl (70-99) H 01/24/24 06:40
Calcium 10.7 mg/dl (8.4-10.2) H 01/24/24 06:40
Phosphorus 4.6 mg/dl (2.5-4.5) H 01/24/24 06:40
Albumin 3.7 g/dl (3.5-5.0) 01/15/24 11:54
Physical Exam
General: AOx3
HEENT: PERRL, EOMI, Ear/Nose Intact, Hearing Normal, Oropharynx Clear/Moist, Trachea Midline and No Thyromegaly
Respiratory: Crackels
Cardiac: Regular Rate/Rhythm
Abdomen: Soft, Nontender, Nondistended, Normal Bowel Sounds and No Hepatosplenomegaly
Musculoskeletal: Edema
Skin: No Rash and Normal Turgor
Psych: Mood/afflect pleasant and Insight/judgement good
Assessment/Plan
-
Assessment
Acute Hypoxic Respiratory Insufficiency secondary to Pneumonia
Chronic bronchiectasis/interstitial lung disease
Chronic hyponatremia
Hypothyroidism
Hx Laryngeal Cancer s/p Chemo and Radiation - 1996
Hx Breast Cancer s/p Lumpectomy
PEG tube
Hypotension
JULY
Plan
Clinical picture suggests that she is hypovolemic.
IV fluids with normal saline will be continued at this time
Fluid restriction will be continued as well
Tube feeding with free water flushes as is May continue
Follow BMP
Discussed with patient and her friend at bedside
Data Reviewed
-
Radiology: Image Personally Visualized and interpreted (A chest x-ray on 01/18/2024 by my reading shows bilateral airspace disease worse in the upper lobes, right infiltrate)
Medical Tests (Nuc Med, Echo etc): Image Personally Visualized and interpreted (EKG on 01/15/2024 by my reading shows sinus tachycardia with PACs)
Labs: Labs Reviewed by me
Old Records: Reviewed
[2024-01-24 15:53] VITALS: BP 133/94
--- NOTE | 2024-01-24 16:20 | W.PN.HOSP.TC ---
Today's Communication/Plan
-
IV fluids
Follow labs in the morning
Case management needs to set up tube feeds at home.
Assessment / Plan
Assessment / Plan
CVS: S1-S2 normal
Chest: rales, cough
Abdomen: Soft, PEG tube in, Bowel sounds present
Extremities: No edema, normal pulses
CORPORATE ADMINISTRATIVE ASSISTANT: Non focal exam
#Acute hypoxic respiratory insufficiency -Due to Aspiration pneumonia.� COVID-19 and influenza negative.
Off O2
#Septic shock due to aspiration pneumonia -with underlying chronic bronchiectasis.�
Chest x-ray shows right upper and right middle lobe pneumonia superimposed on chronic scarring and COPD. History of Klebsiella and Pseudomonas positive sputum.�
Off AB-Stopped Cefepime and Flagyl
Blood cultures negative so far.
# Hypotension-IV fluids likely hypovolemic
# JULY-IV fluids. Follow creatinine
#Chronic dysphagia -suspect related to prior laryngeal cancer and treatment .� She was discharged from speech therapy recently.� On a soft diet with thin liquids at home.� Assessed by speech therapy here, recommendation made for soft/bite sized
solids, mildly thick liquids by spoon or small single cup sips.
Per discussion with speech therapist patient has progressive dysphagia. Patient also reports that pulmonary had recommended that she get a PEG tube as outpatient. She is seen Dr. Rojas as outpatient, she states that she is not able to eat much
because of aspiration and requesting to proceed with PEG tube.
PEG Placed 01/21/24
TF started Jevety 1.5
Patient needs 4 cans of bolus tube feeds at home. Prescription given to case management 01/22/24
Tolerating TF
#Constipation- Bowel regimen
# Borderline elevation in blood pressure-discussed about antihypertensives. Patient does not want to start antihypertensives yet.
#Chronic bronchiectasis/ILD - followed by pulmonary, Dr. Horton.� She started budesonide nebs last week with onset of her illness as well as albuterol nebs.
#Hyponatremia -studies consistent with SIADH.
FR
Right now needs IV fluids because of hypotension
Renal evaluation appreciated
#Hypothyroidism -continue Synthroid. TSH 0.95.
#History of laryngeal cancer -s/p chemo, XRT 1996.
# Moderate protein calorie malnutrition because of patient's poor p.o. intake secondary to dysphagia
PEG tube placed 01/21/24
#History of breast cancer -s/p lumpectomy.
#History of bowel obstruction
#History of hepatitis C- treated and cured.
#Ex-smoker
#Full code
Discussed with nephrology
D/W RN
Anticipated Discharge: Within 24 hours
Subjective/Interval History
-
Date of Service: January 24, 2024
Objective Data
-
Labs:
Laboratory Results
01/24/24
06:40
Sodium 130 L
Potassium 3.9
Chloride 92 L
Carbon Dioxide 31 H
BUN 34 H
Creatinine 1.3 H
Glucose 113 H
Calcium 10.7 H
Vital Signs:
Vital Signs
Temp Pulse Resp BP Pulse Ox
97.4 F 80 16 133/94 97
01/24/24 15:53 01/24/24 15:53 01/24/24 15:53 01/24/24 15:53 01/24/24 15:53
I&O
01/23/24 01/24/24 01/25/24
06:59 06:59 06:59
Intake Total 1200 / 1200
Balance 1200 / 1200
[2024-01-24] MEDS: LOVENOX SC (17:31)
[2024-01-24] MEDS: DESYREL 50 MG PO (20:17)
[2024-01-24] MEDS: MELATONIN 5 MG PO (20:18)
[2024-01-24 23:08] VITALS: BP 140/67
[2024-01-25] MEDS: SYNTHROID 75 MCG PO (05:39)
[2024-01-25] MEDS: NSS 1000 IV (05:41)
[2024-01-25 06:00] VITALS: BMI 18.4
[2024-01-25 08:29] LABS: Hematocrit 34.8 % (37.0-47.0); Hemoglobin 11.6 g/dL (12.0-16.0); Mean Corp Hgb Conc. 33.3 g/dL (33.0-37.0); Mean Corpuscular Volume 84.1 fL (81.0-99.0); Platelet Count 360 10^3/uL (130-400); Red Blood Cell Count 4.14 10^6/uL (4.20-5.40); Red Cell Dist. Width 14.5 % (11.5-14.5)
[2024-01-25 08:36] LABS: Blood Urea Nitrogen 23 mg/dl (7-17); Calcium 9.8 mg/dl (8.4-10.2); Carbon Dioxide 31 mmol/L (22-30); Chloride 99 mmol/L (98-107); Estimated Creatinine Clearance 53 ml/min; Glucose 92 mg/dl (70-99); Magnesium 1.9 mg/dl (1.6-2.3); Potassium 4.4 mmol/L (3.5-5.1); Sodium 135 mmol/L (135-145); eGFR > 60.00
--- NOTE | 2024-01-25 08:58 | W.PN.HOSP.TC ---
Today's Communication/Plan
-
Discharge
Assessment / Plan
Assessment / Plan
Gen-AAOx3, NAD
HEENT-NC, AT, anicteric, clear oral mm
Neck-supple
CV-reg, no M, +S1/S2
Lungs-clear B/L
Abd-soft, NT, ND
Ext-no edema
Musculoskeletal-no cyanosis, clubbing
Skin-warm and dry
Neuro-grossly non-focal
Psych-calm, cooperative
Acute hypoxic respiratory insufficiency -Due to Aspiration pneumonia.� COVID-19 and influenza negative.
Off O2
Septic shock due to aspiration pneumonia -with underlying chronic bronchiectasis.�
Chest x-ray shows right upper and right middle lobe pneumonia superimposed on chronic scarring and COPD. History of Klebsiella and Pseudomonas positive sputum.�Completed course of antibiotics. Can stop fluconazole.
Hypotension -IV fluids likely hypovolemic. Hypotension resolved.
JULY -suspect due to volume depletion. JULY resolved.
Chronic dysphagia -suspect related to prior laryngeal cancer and treatment .� She was discharged from speech therapy recently.� On a soft diet with thin liquids at home.� Assessed by speech therapy here, recommendation made for soft/bite sized
solids, mildly thick liquids by spoon or small single cup sips.
Per discussion with speech therapist patient has progressive dysphagia. Patient also reports that pulmonary had recommended that she get a PEG tube as outpatient. She is seen Dr. Rojas as outpatient, she states that she is not able to eat much
because of aspiration and requesting to proceed with PEG tube.
PEG Placed 01/21/24
TF started Jevety 1.5
Patient needs 4 cans of bolus tube feeds at home. Prescription given to case management 01/22/24
Tolerating TF
Constipation- Bowel regimen
Borderline elevation in blood pressure-discussed about antihypertensives. Patient does not want to start antihypertensives yet.
Chronic bronchiectasis/ILD - followed by pulmonary, Dr. Horton.� She started budesonide nebs last week with onset of her illness as well as albuterol nebs.
Hyponatremia -studies consistent with SIADH as well as volume depletion. Sodium improved to 135 today. Discussed with patient importance of moderate fluid restriction on discharge. Check BMP 1 week after discharge.
Hypothyroidism -continue Synthroid. TSH 0.95.
History of laryngeal cancer -s/p chemo, XRT 1996.
Moderate protein calorie malnutrition because of patient's poor p.o. intake secondary to dysphagia
PEG tube placed 01/21/24
History of breast cancer -s/p lumpectomy.
History of bowel obstruction
History of hepatitis C- treated and cured.
Ex-smoker
Full code
Dispo -medically stable for discharge home today with VN. Outpatient follow-up.
Anticipated Discharge: Today
Subjective/Interval History
-
Date of Service: January 25, 2024
Patient seen and examined. No complaints. Eager to go home.
Objective Data
-
Labs:
Laboratory Results
01/25/24
08:00
WBC 7.0
Hgb 11.6 L
Hct 34.8 L
Plt Count 360
Sodium 135
Potassium 4.4
Chloride 99
Carbon Dioxide 31 H
BUN 23 H
Creatinine 0.8
Glucose 92
Calcium 9.8
Vital Signs:
Vital Signs
Temp Pulse Resp BP Pulse Ox
97.3 F 85 18 140/67 95
01/25/24 07:30 01/25/24 07:30 01/25/24 07:30 01/24/24 23:08 01/24/24 23:08
I&O
01/24/24 01/25/24 01/26/24
06:59 06:59 06:59
Intake Total 1200 / 1200 240 / 240
Output Total 2585 / 2585
Balance 1200 / 1200 -2345 / -2345
Review of Systems
-
History Source: Patient
All other systems: Reviewed and negative
--- NOTE | 2024-01-25 09:06 | W.DS.TRANS ---
DC Summary - Supervisor Steno Pool
-
Discharge Instructions:
Discharge Diagnosis/Procedures Aspiration pneumonia, hyponatremia, dysphagia
Diet Tube feeding,Restrict fluids to 48 oz
Additional Diets 1.Continue Soft/bite-size solids and Mildly-
thick liquids by spoon or small/single cup sip
to supplement tube feeding via PEG
2. Aspiration and KENNETH/reflux precautions - oral
care prior/following PO intake
3. Use of swallow strategies : small bites and
small/single sips of beverages/liquids, super-
supraglottic swallow, L-head turn, throat clear,
multiple swallow, and alternate liquids/solids
4. Meds oral whole/single with sips of mildly-
thick liquids or placed in apple sauce or via
PEG
5. Jevety 1.5 4 cans a day with TF flushes 75 ml
before and after
6. Wedge to sleep as discussed.
Activity As tolerated
Driving Restrictions As prior to admission
Other Services VN
Wound Care clean around tube daily with soap and water.
Let water run over tube in shower. Turn tube
daily. Flush before and after eat feed and meds
. Do not put anything in tube other than meds,
water, tube feed and smooth move tea. Call GI
for any redness, swelling, increased drainage or
pain at peg site.
Instructions:
Stand-Alone Forms:
Changes to Home Medications: No
Discharge Medications:
DC Medications w/original date entered in [facility]
levothyroxine 75 mcg tablet 75 mcg PO DAILY Thyroid 08/31/11
therapeutic multivitamin 1 tab PO DAILY Supplement ##0 01/04/18
trazodone 50 mg tablet 50 mg PO HS Mental Health/Anxiety ##0 01/04/18
alprazolam 0.5 mg tablet (Xanax) 0.5 mg PO HS Mental Health/Anxiety 01/15/24
estradiol 0.01% (0.1 mg/gram) vaginal cream (Estrace) 0 applic vaginal TUTH HORMONE 01/15/24
ipratropium bromide 0.02 % solution for inhalation 0.5 mg inhalation R Q6HPRN PRN sob 01/15/24
levalbuterol HCl 1.25 mg/3 mL solution for nebulization 1.25 mg inhalation R Q8HPRN PRN sob 01/15/24
docusate sodium 100 mg capsule 100 mg PO BID #0 caps 01/25/24
polyethylene glycol 3350 17 gram oral powder packet (HealthyLax) 17 g PO DAILY #0 ea 01/25/24
sennosides 8.6 mg tablet (Senna Lax) 8.6 mg PO BID #0 tabs 01/25/24
Home Medication Changes
Pending Results: No
[2024-01-25] MEDS: VISBIOME 1 CAP PO (10:40)
[2024-01-25] MEDS: MIRALAX PO (10:41)
[2024-01-25] MEDS: MUCINEX 600 MG PO (10:41)
[2024-01-25] MEDS: COLACE PO (10:49)
[2024-01-25] MEDS: SENOKOT PO (10:49)
[2024-01-25] MEDS: DIFLUCAN PO (11:12)
--- NOTE | 2024-01-25 11:16 | CM ---
CM following re: d/c planning
Chart reviewed
CM met with the fourth hand to discuss patient enteral feed tolerance
Pt was placed on [employer] 1.4 formula which will be administered via bolus and has tolerated this feed previously as an oral supplement
CM then met with the patient at bedside; called and spoke with Geovanna/[facility] RN to coordinate arranging delivery of current formula and to confirm the patient's demographic information
Per the patient she has a case of the [employer] formula at home and will be instructed on how to administer the feeding via bolus
Pt is also set up with Lila SAUCEDA and home care visit is set up for tomorrow 01/25.
Pt states that her niece or friend will transport her home at time of d/c
Pt is anxious to be released from the hospital
No additional discharge needs to note at this time
PLAN; d/c home with Lila SAUCEDA and [facility] for the enteral feeds
Lila
== END 2024-01-25 12:18 | disposition home health service (06) | DRG 871 ==
LOC: 4 EAST ACU 15:37
PROVIDERS: Hospitalist; Physician Assistant; Physician Assistant Medical; Registered Nurse; ADMITTING PHYSICIAN Hospitalist; CONSULT PHYSICIAN Internal Medicine Gastroenterology; CONSULT PHYSICIAN Specialist; EMERGENCY PHYSICIAN Emergency Medicine; FAMILY PHYSICIAN Internal Medicine; OTHER PHYSICIAN Internal Medicine Critical Care Medicine
PROC: 0DH63UZ Insertion of Feeding Device into Stomach, Percutaneous Approach (ICD-10-PCS; 2024-01-21)
DX: A41.52 Sepsis due to Pseudomonas (principal); J69.0 Pneumonitis due to inhalation of food and vomit; R65.21 Severe sepsis with septic shock; J47.0 Bronchiectasis with acute lower respiratory infection; R64 Cachexia; Z68.1 Body mass index [BMI] 19.9 or less, adult; J84.9 Interstitial pulmonary disease, unspecified; E44.0 Moderate protein-calorie malnutrition; N17.9 Acute kidney failure, unspecified; E22.2 Syndrome of inappropriate secretion of antidiuretic hormone; F11.11 Opioid abuse, in remission; E89.0 Postprocedural hypothyroidism; B96.1 Klebsiella pneumoniae [K. pneumoniae] as the cause of diseases classified elsewhere; R09.02 Hypoxemia; K21.9 Gastro-esophageal reflux disease without esophagitis; F41.9 Anxiety disorder, unspecified; K59.09 Other constipation; G47.00 Insomnia, unspecified; K22.2 Esophageal obstruction; Y84.2 Radiological procedure and radiotherapy as the cause of abnormal reaction of the patient, or of later complication, without mention of misadventure at the time of the procedure; Y92.9 Unspecified place or not applicable; R13.12 Dysphagia, oropharyngeal phase; R63.30 Feeding difficulties, unspecified; K20.80 Other esophagitis without bleeding; R06.89 Other abnormalities of breathing; Z80.3 Family history of malignant neoplasm of breast; Z82.49 Family history of ischemic heart disease and other diseases of the circulatory system; Z85.3 Personal history of malignant neoplasm of breast; Z85.21 Personal history of malignant neoplasm of larynx; Z86.19 Personal history of other infectious and parasitic diseases; Z11.52 Encounter for screening for COVID-19; Z87.891 Personal history of nicotine dependence; Z87.19 Personal history of other diseases of the digestive system; Z92.21 Personal history of antineoplastic chemotherapy; Z92.3 Personal history of irradiation; Z79.890 Hormone replacement therapy; Z87.01 Personal history of pneumonia (recurrent); Z86.16 Personal history of COVID-19
CPT/HCPCS: 71046; 80048; 80053; 81003; 81099; 83605; 83735; 83930; 83935; 84100; 84145; 84300; 84443; 85014; 85018; 85025; 85027; 85610; 85730; 87040; 87070; 87205; 87502; 87811; 92526; 92610; 93005; 94640; 96365; 96375; 99285

== ENCOUNTER → 2024-02-25 09:23 | Outpatient (REF) | payer BC, SELFPAY | LOC: RAD 09:23 | PROVIDERS: ATTENDING PHYSICIAN Nurse Practitioner Family; FAMILY PHYSICIAN Internal Medicine | DX: Z87.01 Personal history of pneumonia (recurrent) (principal) | CPT/HCPCS: 71046 ==

== ENCOUNTER 2024-12-17 14:12 | Emergency (ER) | payer BC, SELFPAY ==
[2024-12-17 14:12] VITALS: BMI 19.8
[2024-12-17 14:21] VITALS: BP 129/91
[2024-12-17 14:47] LABS: % Basophils 0.4 % (0-2); % Eosinophils 0.2 % (0-6); % Immature Granulocytes 0.6 % (0-0.5); % Monocytes 7.4 % (1.7-9.3); % Neutrophils 82.4 % (42.2-75.2); Absolute Basophils 0.1 10^3/uL (0-0.2); Absolute Immature Granulocytes 0.1 10^3/uL (0-0.05); Absolute Lymphocytes 1.1 10^3/uL (1.2-3.4); Absolute Monocytes 0.9 10^3/uL (0.1-0.6); Absolute Neutrophils 10.2 10^3/uL (1.4-6.5); Hematocrit 40.2 % (37.0-47.0); Mean Corp Hgb Conc. 34.8 g/dL (33.0-37.0); Mean Corpuscular Hgb 29.2 pg (27.0-31.0); Mean Corpuscular Volume 83.9 fL (81.0-99.0); Mean Platelet Volume 11.2 fL (7.4-10.4); Nucleated Red Blood Cells % 0 %; Platelet Count 249 10^3/uL (130-400); Red Blood Cell Count 4.79 10^6/uL (4.20-5.40); Red Cell Dist. Width 13.5 % (11.5-14.5); White Blood Cell Count 12.4 10^3/uL (4.8-10.8)
[2024-12-17 15:00] LABS: ALT (SGPT) 17 U/L (0-35); AST (SGOT) 32 U/L (14-36); Albumin 4.3 g/dl (3.5-5.0); Alkaline Phosphatase 84 U/L (38-126); Blood Urea Nitrogen 39 mg/dl (7-17); Calcium 10.1 mg/dl (8.4-10.2); Carbon Dioxide 29 mmol/L (22-30); Chloride 90 mmol/L (98-107); Glucose 136 mg/dl (70-99); Potassium 4.9 mmol/L (3.5-5.1); Sodium 129 mmol/L (135-145); Total Bilirubin 0.6 mg/dl (0.2-1.3); Total Protein 7.6 g/dl (6.3-8.2); eGFR 51.18
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
[2024-12-17 15:43] VITALS: BP 146/102
[2024-12-17] MEDS: NSS 1000 IV (16:37)
[2024-12-17 17:05] VITALS: O2SAT 94; O2SAT 95
[2024-12-17] MEDS: XOPENEX 1.25 MG INHALANT SOLUTION INH (17:09)
[2024-12-17 17:10] VITALS: BP 188/123
[2024-12-17 17:27] VITALS: BP 154/114
== END 2024-12-17 18:56 | disposition home or self-care (01) ==
LOC: EMR 14:12
PROVIDERS: Student in an Organized Health Care Education/Training Program; EMERGENCY PHYSICIAN Emergency Medicine; FAMILY PHYSICIAN Internal Medicine
DX: E86.0 Dehydration (principal); R05.9 Cough, unspecified; E03.9 Hypothyroidism, unspecified; Z85.21 Personal history of malignant neoplasm of larynx; Z87.891 Personal history of nicotine dependence; Z90.49 Acquired absence of other specified parts of digestive tract
CPT/HCPCS: 94640; 96360; 99284; 71046; 74018; 80053; 85025

== ENCOUNTER 2024-12-20 17:38 | Inpatient (IN) | payer BC, SELFPAY ==
[2024-12-20] VITALS (13 sets, daily range): BP systolic 126–220; BP diastolic 43–157; BMI 18.8; BMI 19.2; BMI 18.5
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
[2024-12-20 12:32] LABS: % Basophils 0.7 % (0-2); % Eosinophils 0.8 % (0-6); % Immature Granulocytes 1.8 % (0-0.5); % Lymphocytes 12.2 % (20.5-51.1); % Monocytes 9.3 % (1.7-9.3); % Neutrophils 75.2 % (42.2-75.2); Absolute Basophils 0.1 10^3/uL (0-0.2); Absolute Eosinophils 0.1 10^3/uL (0-0.7); Absolute Immature Granulocytes 0.2 10^3/uL (0-0.05); Absolute Lymphocytes 1.5 10^3/uL (1.2-3.4); Absolute Monocytes 1.1 10^3/uL (0.1-0.6); Hematocrit 39.1 % (37.0-47.0); Hemoglobin 13.6 g/dL (12.0-16.0); Mean Corp Hgb Conc. 34.8 g/dL (33.0-37.0); Mean Corpuscular Hgb 29.2 pg (27.0-31.0); Mean Corpuscular Volume 83.9 fL (81.0-99.0); Nucleated Red Blood Cells % 0 %; Platelet Count 312 10^3/uL (130-400); Red Blood Cell Count 4.66 10^6/uL (4.20-5.40); Red Cell Dist. Width 13.2 % (11.5-14.5)
[2024-12-20] MEDS: NSS 1000 IV ×2 (12:38→20:50)
[2024-12-20] MEDS: MORPHINE SULFATE 2 MG IV (12:38)
[2024-12-20 12:43] LABS: ALT (SGPT) 19 U/L (0-35); AST (SGOT) 36 U/L (14-36); Albumin 4.1 g/dl (3.5-5.0); Alkaline Phosphatase 100 U/L (38-126); Blood Urea Nitrogen 29 mg/dl (7-17); Calcium 9.7 mg/dl (8.4-10.2); Carbon Dioxide 32 mmol/L (22-30); Chloride 87 mmol/L (98-107); Estimated Creatinine Clearance 49 ml/min; Glucose 115 mg/dl (70-99); Potassium 4.7 mmol/L (3.5-5.1); Sodium 129 mmol/L (135-145); Total Bilirubin 0.5 mg/dl (0.2-1.3); Total Protein 7.1 g/dl (6.3-8.2); eGFR > 60.00
[2024-12-20] MEDS: MORPHINE SULFATE 4 MG IV ×4 (13:01→23:35)
[2024-12-20] MEDS: TORADOL 30 MG IV (15:13)
[2024-12-20] MEDS: XYLOCAINE VISCOUS CUP 15 ML PO (15:13)
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
--- NOTE | 2024-12-20 16:02 | CM ---
regional operations manager reviewed patient's chart and met with patient and her friend/MICHELLE Marrero at bedside. Patient lives alone in a 2 story home with a 1st floor set up, with bed and bathroom, patient is independent with adl's and ambulation. Patient has tube
feeds at home from [facility] [phone] per patient. Per patient she will be admitted to hospital today and then for possible discharge tomorrow depending on how she progresses. Plan is to home with home oxygen and patient is requesting information
on palliative care. Referral sent to [id number] for home oxygen, and referral sent to [facility] for information on pallative services.
Patient to have nocturnal testing, ED documentation sent.
Plan; Home with home oxygen from [facility], and [facility] for tube haydeewendy may benefit from visiting nurses.
--- NOTE | 2024-12-20 19:04 | W.PN.UPDATE ---
Update Note
Progress Note Update
This is an addendum to the H&P written by April Calderon on 12/17/2024. Seen and examined independently with
64-year-old female history of aspiration pneumonia, chronic bronchiectasis/ILD, laryngeal cancer status post radiation, chronic dysphagia with PEG tube, hyponatremia, hypothyroidism, breast cancer status post lumpectomy, bowel obstruction, hepatitis
C status post treatment, presenting with redness and thickening of the skin on the neck, sore throat, cough and shortness of breath and chills and sore throat.
Was treated for thrush yesterday.
Patient clinically septic tachycardia and leukocytosis.
CT of the neck shows bilateral upper lobe consolidations, right worse than left. Bilateral upper lobe pleural-parenchymal scarring. Pneumonia in the right upper lobe not definitively excluded.
Seems patient has a URI with possible pneumonia.
IV fluids. Check sputum culture. Check COVID and influenza. Check chest x-ray. Patient does not tolerate many antibiotics and states that her pulmonary office would know how to treat her. Oral nystatin for thrush. Seems patient has a URI with
possible pneumonia. Appears the patient has thickening of the neck from prior radiation but unclear why there is erythema of the neck.
She would like palliative consult. Pulmonary consulted.
[2024-12-20] MEDS: ZOFRAN 4 MG IV (20:54)
[2024-12-20 21:30] LABS: COVID-19 Antigen Negative (Negative)
--- NOTE | 2024-12-20 21:34 | TRANSFER ---
Patient transferred with all belongings to [facility] with RN via bed.
[2024-12-20] MEDS: MYCOSTATIN ORAL SUSPENSION 5 ML PO (22:44)
[2024-12-20] MEDS: XANAX 0.5 MG PO (22:45)
[2024-12-20] MEDS: APRESOLINE 5 MG IV (22:45)
[2024-12-20] MEDS: SENOKOT 8.6 MG PO (22:45)
[2024-12-20] MEDS: XOPENEX 1.25 MG INHALANT SOLUTION INH (22:53)
[2024-12-20] MEDS: ATROVENT NEBULES 0.5 MG INH (22:53)
[2024-12-21] MEDS: DESYREL 50 MG PO (01:42)
[2024-12-21] MEDS: TORADOL 15 MG IV ×3 (02:25→22:40)
[2024-12-21] MEDS: APRESOLINE 5 MG IV ×2 (02:28→11:50)
--- NOTE | 2024-12-21 03:09 | PTCARENOTE ---
late entry: 2229 pt admitted to room 322, placed on tele #17, admission assessment completed, pt on 4L o2 . b/p 212/157 with automatic, then 180/120 manual. , notified INTENSIVIST, hydralazine given see mar
--- NOTE | 2024-12-21 03:14 | PTCARENOTE ---
0215 pt c/o headache, B/p 184/122 manually. notified CANDY MIXER, ok for hydralazine to be given early per CANDY MIXER. see mar for documentation
[2024-12-21 03:50] VITALS: BP 114/54
[2024-12-21] MEDS: SYNTHROID 100 MCG PO (05:18)
[2024-12-21] MEDS: MORPHINE SULFATE 4 MG IV (05:34)
[2024-12-21] MEDS: ZOFRAN 4 MG IV ×2 (05:39→11:40)
[2024-12-21 06:29] LABS: Hematocrit 35.1 % (37.0-47.0); Hemoglobin 11.9 g/dL (12.0-16.0); Mean Corp Hgb Conc. 33.9 g/dL (33.0-37.0); Mean Corpuscular Volume 85.6 fL (81.0-99.0); Mean Platelet Volume 10.8 fL (7.4-10.4); Platelet Count 267 10^3/uL (130-400); Red Cell Dist. Width 13.3 % (11.5-14.5); White Blood Cell Count 9.4 10^3/uL (4.8-10.8)
[2024-12-21 07:00] LABS: Blood Urea Nitrogen 19 mg/dl (7-17); Calcium 8.5 mg/dl (8.4-10.2); Carbon Dioxide 26 mmol/L (22-30); Chloride 93 mmol/L (98-107); Estimated Creatinine Clearance 54 ml/min; Glucose 85 mg/dl (70-99); Potassium 4.3 mmol/L (3.5-5.1); Sodium 131 mmol/L (135-145); eGFR > 60.00
[2024-12-21 07:08] VITALS: BP 134/93
[2024-12-21] MEDS: NSS 1000 IV (08:47)
[2024-12-21] MEDS: MYCOSTATIN ORAL SUSPENSION 5 ML PO (08:48)
[2024-12-21] MEDS: SENOKOT 8.6 MG PO (08:48)
[2024-12-21 10:22] LABS: Procalcitonin 0.15 ng/ml (0.0-0.25)
[2024-12-21 10:59] VITALS: BP 182/104
--- NOTE | 2024-12-21 12:41 | CM ---
Received referral from attending for Hospice. Spoke with patient who stated that she is agreeable and is agreeable to . Put consult in for hospice (liason).
Spoke with Norman from [employer] who stated that she can deliver o2 after it is determined if patient is/will be hospice.
Plan: Case management will continue to follow and assist with discharge planning. Hospice vrs home with or Palliative Care.
--- NOTE | 2024-12-21 12:42 | W.CON.PAL ---
Consultation
-
Date/Time Consultation Requested: 12/21/2024
Date/Time Consultation Performed: 12/21/2024
Requesting Provider: Gillian Calderon
Performing Provider: Meagan Meier
Reason for Consult: Goals of Care Discussion
Primary Diagnosis: Larynx Cancer
Consult Requested By: Patient
Reason for Admission
Illness Course/HPI
Bryanna is a 64 y/o female with history of larynx cancer, treated with radiation. breast cancer. who was admitted to hospital with dyspnea and hypoxia. recent URI.
Patient requested palliative care consultation to discuss home options.
met with patient at bedside. she denied significant dyspnea. unfortunately patient severely nauseated. Received zofran earlier. Spoke with Rn who will give patient compazine.
Provided patient with information about palliative care services
She is interested in meeting with hospice as well, however, is also planning on a right breast mass biospy. she shars that if cancerous she does not intended to pursue further treatment.
Goals of Care Discussion
Patient Goals
discussed palliative care services.
patient severely nasueated, unable to complete conversation at this time.
Pain & Symptom Assessment
Garrard Symptom Scale 0=none, 10=worst
Nausea: 10
Objective Data
-
Objective Data:
Vital Signs
Temp Pulse Resp BP Pulse Ox
97.5 F 98 17 182/104 98
12/21/24 10:59 12/21/24 11:50 12/21/24 10:59 12/21/24 11:50 12/21/24 10:59
Laboratory Results
12/21/24 06:04
12/21/24 06:04
Total Protein 7.1 g/dl (6.3-8.2) 12/20/24 11:57
Albumin 4.1 g/dl (3.5-5.0) 12/20/24 11:57
Palliative Performance Scale
Palliative Performance Scale:
PPS Level Ambulation Activity & Evidence of Disease Self Care Intake Conscious Level
100% Full Normal Activity & Work; Full Intake Full
No Evidence of Disease
90% Full Normal Activity & Work; Full Normal Full
Some Evidence of Disease
80% Full Normal Activity with Effort Full Normal or Full
Some Evidence of Disease Reduced
70% Reduced Unable Normal Job/Work Full Normal or Full
Significant Disease Reduced
60% Reduced Unable Hobby/Housework Occasional Normal or Full or Confusion
Significant Disease Assistance Reduced
50% Mainly Sit/Lie Unable to do Any Work Considerable Normal or Full or Confusion
Extensive Disease Assistance Req'd Reduced
40% Mainly in Bed Unable to do Most Activity Mainly Assistance Normal or Full or Drowsy;
Extensive Disease Reduced +/- Confusion
30% Totally Bed Unable to do Any Activity Total Care Normal or Full or Drowsy;
Bound Extensive Disease Reduced +/- Confusion
20% Totally Bed Bound Unable to do Any Activity Total Care Minimal to Full or Drowsy;
Extensive Disease Sips +/- Confusion
10% Totally Bed Bound Unable to do Any Activity Total Care Mouth Care Drowsy or Coma;
Extensive Disease Only +/- Confusion
0%
PPS Score Level:
Palliative Performance Score Response
Palliative Performance Score Response: 50%
Assessment / Plan
-
Assessment/Plan:
Reviewed palliative care with patient. will return tomorrow to answer any further questions she has about our services. left brochure
Nausea - has zofran, to trial Compazine
dyspnea - improving
code status - dnr
total floor time - 40 mins
[2024-12-21] MEDS: COMPAZINE 5 MG IV (12:44)
--- NOTE | 2024-12-21 13:10 | W.PN.HOSP.TC ---
Today's Communication/Plan
-
Monitor vital signs see plan
Monitor off antibiotics at this time
Check CT abdomen/pelvis
Speech evaluation
Pulmonary to see
Palliative care
Antiemetics
Wean O2 as tolerated
Assessment / Plan
Assessment / Plan
General: Well Developed, No Apparent Distress, Conversant, Respiratory Distress, Pain, Chills, Appears Chronically Ill and Cachectic
HEENT: NormoCephalic, Moist mucous membranes, Atraumatic; No Neck Nontender
Respiratory: Clear, Crackles and Decreased Breath Sounds
Cardiac: S1/S2, Regular Rhythm
Breast: Deferred by me
GI: Soft, Non Tender, Non Distended and Normal Bowel Sounds
Musculoskeletal: No Edema
Skin: Warm, Rash (front of neck) and IV/Catheter Site
Neuro: Awake, Alert, AO x 3 and Nonfocal/grossly intact
Psych: Calm and Intact Judgment/Insight
Suspected bronchitis with possibility of pneumonia/pneumonitis
# Concern for recent aspiration
procal low; would not treat with antibiotics at this time. Some lung consolidation could be secondary to scarring
Patient follows with Dr. Horton out patient for pulmonology
Neck CT: Unremarkable neck soft tissues.
Bilateral upper lobe consolidations, right worse than left.
Bilateral upper lobe pleural parenchymal scarring. Superimposed pneumonia in the right upper lobe not definitely excluded.
Moderate to severe multilevel degenerative changes of the lower cervical spine.
- sputum culture pending
- O2 PRN to maintain SpO2 >93%
- consult pulmonary
Neck CT without any acute abnormality in the neck. Bilateral upper lobe consolidations. Pleural parenchymal scarring.
covid, flu neg
Acute hypoxic respiratory insufficiency
Has problem with mucous plugging in the past
Pulmonary consulted
Wean oxygen as tolerated
Recurrent nausea and vomiting
Per patient. Started after she was started on amoxicillin by PCP
Per patient she also had history of SBO
Check abdomen/pelvis CT
Continue with Zofran
speech eval
#Oral thrush
- nystatin swish and swallow
#hypothyroidism
- continue levothyroxine
#anxiety
- continue Xanax
HTN, no prior hx
monitor
hydralazine prn
#Hx malignant neoplasm of larynx
s/p radiation 28-30 years ago
has had recurrent aspiration s/p radiation
PEG in place, currently uses Liquid Hope, Peptide Formula TID (patient will supply). Dietary consult
- consult palliative care
- consult hospice care
#Hx left breast invasive ductal carcinoma
s/p lumpectomy and radiation 2009
s/p lumpectomy 2020
patient with new area on right breast, scheduled to be biopsied Dec 2024
#chronic hepatitis C
Code status: DNR
DVT Prophylaxis: Lovenox Sq
I spent a total of 52 minutes with the patient or on the floor. More than 50% of this time involved counseling and coordination of care.
Anticipated Discharge: > 48 hours
Subjective/Interval History
-
Date of Service: December 21, 2024
Has nausea and vomiting
Objective Data
-
Labs:
Laboratory Results
12/21/24
06:04
WBC 9.4
Hgb 11.9 L
Hct 35.1 L
Plt Count 267
Sodium 131 L
Potassium 4.3
Chloride 93 L
Carbon Dioxide 26
BUN 19 H
Creatinine 0.8
Glucose 85
Calcium 8.5
Vital Signs:
Vital Signs
Temp Pulse Resp BP Pulse Ox
97.5 F 98 17 182/104 98
12/21/24 10:59 12/21/24 11:50 12/21/24 10:59 12/21/24 11:50 12/21/24 10:59
I&O
12/20/24 12/21/24 12/22/24
06:59 06:59 06:59
Intake Total 900 / 900
Balance 900 / 900
--- NOTE | 2024-12-21 13:46 | HOSPNOTE ---
Addendum entered by Linette Carballo RN 12/21/24 16:03:
Met with patient and she would like me to come back on Thursday and will decide palliative or hospice. More information to follow.
Original Note:
Patient asked to speak with aboriginal liaison officer for information about hospice and the philosophy. I will meet with patient around 2:45 and then will let CM and Attending know the outcome.
[2024-12-21] MEDS: OMNIPAQUE 50 ML PO (15:07)
[2024-12-21] MEDS: MYCOSTATIN ORAL SUSPENSION PO ×4 (15:07→22:46)
--- NOTE | 2024-12-21 15:10 | PTOTSP ---
Speech Therapy Evaluation:
Pt with known mild-moderate oral and moderate pharyngeal dysphagia s/p VSE 06/2023. Pt has been receiving primary nutrition/hydration via PEG with supplemental PO consisting of soft solids, mildly thick liquids, and ice chips. Initial ST evaluation
limited 2/2 nausea and dry heaving, therefore unable to assess tolerance of PO. Evaluation of facial, labial, and lingual structures/functions grossly WFL. Discussed recommendation for repeat VSE given recurrent PNAs and increased risk for
aspiration over time given history of laryngeal cancer and subsequent radiation. Pt agreeable for instrumental assessment on another day.
Pt with nearly aphonic vocal quality in the setting of laryngeal cancer (1996) s/p chemo/XRT.
Recommend:
1. Continue primary means of nutrition/hydration via PEG
2. Medications via peg
3. Oral care 3x/daiy
4. [employer]AT ENGINE MECHANIC to follow to determine candidacy to resume baseline supplemental feedings of soft solids ([id number]) and mildly thick liquids vs determine readiness for repeat VSE vs liberalization of diet pending hospice consult
[2024-12-21 15:15] VITALS: BP 156/105
[2024-12-21 15:18] VITALS: BMI 18.5
[2024-12-21] MEDS: TIGAN 200 MG IM (15:23)
--- NOTE | 2024-12-21 17:08 | CON.PUL ---
Consultation
Consultation Request
Date/Time Consultation Requested: 12/21/2024
Date/Time Consultation Performed: 12/21/2024
Requesting Provider: Dr. Yan
Performing Provider: Dr. Carter Turner
Reason for Consultation: Pneumonia/recurrent aspiration
Medical History
-
History of Present Illness:
Patient is a 63-year-old female, followed as outpatient with Dr. Horton in our office. She has a history of recurrence of his pneumonia, aspiration pneumonia, interstitial lung disease, history of laryngeal cancer with chemotherapy/radiation 20+
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
Initially with upper respiratory symptoms, treated with amoxicillin in the outpatient setting. Patient did vomit after taking the first dose.
She was found to have hypoxemia down to 77%.
Reported fevers and chills, moist productive cough, shortness of breath similar to prior presentations with pneumonia.
-
Of note, patient is scheduled for breast biopsy in December.
.
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
left breast, history of COVID March 2022, tracheal papilloma, small bowel obstruction x 3 in the past most recently 2002, influenza A pneumonia, streptococcal pneumonia with bacteremia, history of restrictive lung disease, hypoxia, GERD,
hypothyroidism s/p TIAN therapy
Past Medical History
Past Medical History: None (See above)
Past Surgical History: None ( see above)
Social History
Tobacco: Former Smoker ([id number], quit )
Alcohol: None
Drug: None
Personal:
Living: Alone
Employment: Not Employed
Family History
Family History: Other (Mother from breast cancer age 53. 1 son drug addict.)
Allergies / Home Medications
Allergies
Allergy/AdvReac Type Severity Reaction Status Date / Time
No Known Allergies Allergy Verified 12/20/24 11:56
Home Medications
�Medication �Instructions �Recorded �Confirmed �Last Taken �Type
alprazolam 0.5 mg tablet (Xanax) 0.5 mg PO HS Mental Health/Anxiety 01/15/24 12/20/24 01/14/24 History
estradiol 0.01% (0.1 mg/gram) 0 applic vaginal TU HORMONE 01/15/24 12/20/24 Unknown History
vaginal cream (Estrace)
ipratropium bromide 0.02 % 0.5 mg inhalation R Q6HPRN PRN sob 01/15/24 12/20/24 Unknown History
solution for inhalation
levalbuterol HCl 1.25 mg/3 mL 1.25 mg inhalation R Q8HPRN PRN sob 01/15/24 12/20/24 Unknown History
solution for nebulization
sennosides 8.6 mg tablet (Senna 8.6 mg PO BID #0 tabs 01/25/24 12/20/24 Unknown Rx
Lax)
acetaminophen 325 mg tablet 650 mg PO Q6H PRN pain 12/20/24 12/20/24 Unknown History
(Tylenol)
ibuprofen 200 mg tablet 400 mg PO Q6H PRN mild pain 12/20/24 12/20/24 Unknown History
levothyroxine 100 mcg tablet 100 mcg PO DAILY@0600 12/20/24 12/20/24 Unknown History
sodium chloride 0.65 % nasal spray 2 spray intranasal QID PRN 12/20/24 12/20/24 Unknown History
aerosol congestion
trazodone 50 mg tablet 50 mg PO HSPRN PRN insomnia 12/20/24 12/20/24 Unknown History
Review of Systems
-
History Source: Patient
All other systems: Negative unless noted
Vitals / Labs / Diagnostic Testing
Vital Signs
Temp Pulse Resp BP Pulse Ox
98.1 F 95 18 156/105 96
12/21/24 15:15 12/21/24 15:15 12/21/24 15:15 12/21/24 15:15 12/21/24 15:15
Lab Data
12/21/24 06:04
12/21/24 06:04
Microbiology
12/20/24 18:12 Sputum Respiratory Culture - Preliminary
Usual Respiratory Paola
12/20/24 18:12 Sputum Gram Stain - Preliminary
12/20/24 21:05 Nasal Swab Influenza Types A & B (ANNEMARIE) - Final
Negative for Influenza A & B, NAAT
Negative results must be combined with clinical observations
and patient history.
Nucleic Acid Amplification test (NAAT)performed on the
[employer] platform.
Diagnostic Testing:
Physical Exam
-
HEENT: Normocephalic
Cardiovascular: S1/S2, Regular Rhythm, Murmur (n), Rub (n), Peripheral Edema and Calf Tenderness (n)
Respiratory: Rales (Minimal) and Non-Labored Respirations
GI: Soft and Non Distended
Neurology: Awake
Skin: Warm
General: Comfortable
Assessment
-
63-year-old female with history of recurrent pneumonia, Pseudomonas/streptococcal pneumonia in the past, aspiration syndrome with ongoing speech and swallow therapy as outpatient, history of head and neck/laryngeal cancer with radiation/chemotherapy
, presents with increased symptoms -did receive amoxicillin in the outpatient setting but developed vomiting. Admitted on 12/20/2024 with progressive moist cough, shortness of breath, fevers and chills. Chest x-ray abnormal.
Cough/abnormal chest x-ray: Possibly aspiration event? Pneumonitis versus pneumonia.
Chest x-ray 12/20/2024: Chronic appearing patchy bilateral infiltrates. Stable to December 17, 2024. No pleural effusion.
CT neck 12/20/2024: Lung cuts reviewed. Showed bilateral upper lobe consolidations right worse than left. Bilateral upper lobe pleural-parenchymal scarring. Cannot rule out superimposed pneumonia.
Leukocytosis
-
History of recurrent pneumonia
Klebsiella/Pseudomonas/streptococcal
Interstitial lung disease/bronchiectasis-without exacerbation.
Conditions present prior to admission
Hypothyroidism
History of laryngeal cancer status postchemotherapy/XRT in 1996
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
History of breast cancer 2020 left side
Lumpectomy
History for recurrent bowel obstruction, last 2002
Chronic dysphagia/aspiration syndrome
[id number] history of smoking, quit
Family history of breast cancer
Plan/recommendations
-
Clinically improved since admission
Afebrile
Leukocytosis rapidly improved
Cannot rule out aspiration pneumonitis-possibly already improving.
In reviewing imaging hard to rule out acute pneumonia as the patient has chronic upper lobe abnormalities since 2021.
-
Agree with observation of antibiotics for now
-
Not bronchospastic on exam
Good air movement
No significant phlegm production
Continue with secretion clearance interventions.
Continue with supplemental [id number] pulse ox above 90%. Has required oxygen in the past in the setting of aspiration events.
Continue to wean down to off as able.
-
Patient is not on chronic steroid therapy.
Has been on nebulized therapy in the past but does not take regularly, only takes with flareups.
Not bronchospastic on exam 12/21/2024
-
Follow sputum culture-normal respiratory paola 12/20/2024
Negative influenza
Negative COVID
-
Continue secretion clearance interventions:
Nebulizers:-Ipratropium/Xopenex via nebulizer as needed.
No need for systemic or nebulized steroids. Apparently patient has developed thrush in the past.
Currently on nystatin for thrush
Continue with airway clearance, Acapella encouraged.
Continue with aspiration precautions.
Head of the bed elevate
PEG tube in place-eventually restart tube feedings.
-
Nausea and vomiting.
CT abdomen pelvis ordered. History of small bowel obstruction in the past.
-
DNR status
Palliative care has seen the patient as well.
-
Follow up with Dr. Horton after DC in 2-3 weeks.
[2024-12-21] MEDS: LOVENOX 40 MG SC (17:35)
--- NOTE | 2024-12-21 19:36 | PTCARENOTE ---
The RN walked in on pt giving herself a PEG tube feeding with her feeds from home. MD notified and pt instructed not to have anything through the PEG or by mouth. Shortly after, pt became very nauseated and threw up feeding. Pt complained of
persistent nausea throughout the rest of the shift. Zofran and compazine given with no relief. IM tigan given with some relief. Pt able to tolerate some of the oral contrast through PEG. Sent to CT and pending results.
[2024-12-21 20:01] VITALS: BP 176/116
[2024-12-21] MEDS: SENOKOT PO (20:32)
[2024-12-21] MEDS: XANAX 0.5 MG PO (22:39)
[2024-12-21 23:11] VITALS: BP 161/127
[2024-12-22] VITALS (7 sets, daily range): BP systolic 120–178; BP diastolic 90–121
[2024-12-22] MEDS: NSS 1000 IV ×2 (03:43→17:52)
[2024-12-22] MEDS: TORADOL 15 MG IV ×3 (04:47→21:26)
[2024-12-22] MEDS: SYNTHROID 100 MCG PO (05:53)
[2024-12-22 06:57] LABS: % Basophils 0.6 % (0-2); % Eosinophils 0.5 % (0-6); % Lymphocytes 9.8 % (20.5-51.1); % Monocytes 8.2 % (1.7-9.3); % Neutrophils 78.9 % (42.2-75.2); Absolute Basophils 0.1 10^3/uL (0-0.2); Absolute Eosinophils 0.1 10^3/uL (0-0.7); Absolute Immature Granulocytes 0.2 10^3/uL (0-0.05); Absolute Lymphocytes 1.2 10^3/uL (1.2-3.4); Absolute Neutrophils 9.3 10^3/uL (1.4-6.5); Hematocrit 35.7 % (37.0-47.0); Hemoglobin 12.1 g/dL (12.0-16.0); Mean Corp Hgb Conc. 33.9 g/dL (33.0-37.0); Mean Corpuscular Hgb 28.7 pg (27.0-31.0); Mean Corpuscular Volume 84.6 fL (81.0-99.0); Mean Platelet Volume 10.7 fL (7.4-10.4); Nucleated Red Blood Cells % 0 %; Platelet Count 344 10^3/uL (130-400); Red Blood Cell Count 4.22 10^6/uL (4.20-5.40); Red Cell Dist. Width 13.3 % (11.5-14.5); White Blood Cell Count 11.7 10^3/uL (4.8-10.8)
[2024-12-22 07:10] LABS: Blood Urea Nitrogen 22 mg/dl (7-17); Calcium 8.3 mg/dl (8.4-10.2); Carbon Dioxide 24 mmol/L (22-30); Chloride 94 mmol/L (98-107); Glucose 78 mg/dl (70-99); Sodium 133 mmol/L (135-145)
[2024-12-22 07:23] LABS: Estimated Creatinine Clearance 62 ml/min; eGFR > 60.00
[2024-12-22] MEDS: SENOKOT 8.6 MG PO (08:34)
[2024-12-22] MEDS: MYCOSTATIN ORAL SUSPENSION 5 ML PO ×3 (08:35→17:53)
[2024-12-22] MEDS: TYLENOL ORAL SOLUTION TUBE (08:36)
--- NOTE | 2024-12-22 10:15 | W.PN.PAL2 ---
Today's Communication
-
Palliative Follow up visit
Patient seen to follow up on our conversation yesterday about palliative care services. Answered patient's questions about palliative care and hospice. At this time, as she is comfortable, nausea better today.
At home she is independent of adls, still driving. if she is interested in outpatient palliative care, she would be eligible for our clinic program. information about the program provided.
Assessment / Plan
-
Assessment/Plan:
provided information abut outpatient palliative care services
nausea improved today
Reason for Admission
Illness Course/HPI
Bryanna is a 64 y/o female with history of larynx cancer, treated with radiation. breast cancer. who was admitted to hospital with dyspnea and hypoxia. recent URI.
Patient requested palliative care consultation to discuss home options.
met with patient at bedside. she denied significant dyspnea. unfortunately patient severely nauseated. Received zofran earlier. Spoke with Rn who will give patient compazine.
Provided patient with information about palliative care services
She is interested in meeting with hospice as well, however, is also planning on a right breast mass biospy. she shars that if cancerous she does not intended to pursue further treatment.
Objective Data
-
Objective Data:
Vital Signs
Temp Pulse Resp BP Pulse Ox
97.8 F 106 17 161/114 93
12/22/24 07:24 12/22/24 07:24 12/22/24 07:24 12/22/24 07:24 12/22/24 07:24
Laboratory Results
12/22/24 06:14
12/22/24 06:14
Total Protein 7.1 g/dl (6.3-8.2) 12/20/24 11:57
Albumin 4.1 g/dl (3.5-5.0) 12/20/24 11:57
Palliative Performance Scale
Palliative Performance Scale:
PPS Level Ambulation Activity & Evidence of Disease Self Care Intake Conscious Level
100% Full Normal Activity & Work; Full Intake Full
No Evidence of Disease
90% Full Normal Activity & Work; Full Normal Full
Some Evidence of Disease
80% Full Normal Activity with Effort Full Normal or Full
Some Evidence of Disease Reduced
70% Reduced Unable Normal Job/Work Full Normal or Full
Significant Disease Reduced
60% Reduced Unable Hobby/Housework Occasional Normal or Full or Confusion
Significant Disease Assistance Reduced
50% Mainly Sit/Lie Unable to do Any Work Considerable Normal or Full or Confusion
Extensive Disease Assistance Req'd Reduced
40% Mainly in Bed Unable to do Most Activity Mainly Assistance Normal or Full or Drowsy;
Extensive Disease Reduced +/- Confusion
30% Totally Bed Unable to do Any Activity Total Care Normal or Full or Drowsy;
Bound Extensive Disease Reduced +/- Confusion
20% Totally Bed Bound Unable to do Any Activity Total Care Minimal to Full or Drowsy;
Extensive Disease Sips +/- Confusion
10% Totally Bed Bound Unable to do Any Activity Total Care Mouth Care Drowsy or Coma;
Extensive Disease Only +/- Confusion
0%
PPS Score Level:
Palliative Performance Score Response
Palliative Performance Score Response: 50%
Physical Exam
-
General: No Apparent Distress
Neuro: Awake and Alert
Psych: Calm
[2024-12-22] MEDS: APRESOLINE 5 MG IV (11:25)
[2024-12-22] MEDS: ZOFRAN 4 MG IV ×2 (11:25→19:26)
--- NOTE | 2024-12-22 11:30 | W.PN.PUL3 ---
Today's Communication / Plan
-
Continue secretion clearance intervention
Monitor for fever off antibiotic
Aspiration precautions
Increase activity as able.
Monitor for additional 24 hours of antibiotics
Hopefully can discharge from my perspective in the next 24 hours
Assessment
-
63-year-old female with history of recurrent pneumonia, Pseudomonas/streptococcal pneumonia in the past, aspiration syndrome with ongoing speech and swallow therapy as outpatient, history of head and neck/laryngeal cancer with radiation/chemotherapy
, presents with increased symptoms -did receive amoxicillin in the outpatient setting but developed vomiting. Admitted on 12/20/2024 with progressive moist cough, shortness of breath, fevers and chills. Chest x-ray abnormal.
Cough/abnormal chest x-ray: Possibly aspiration event? Pneumonitis versus pneumonia.
Chest x-ray 12/20/2024: Chronic appearing patchy bilateral infiltrates. Stable to December 17, 2024. No pleural effusion.
CT neck 12/20/2024: Lung cuts reviewed. Showed bilateral upper lobe consolidations right worse than left. Bilateral upper lobe pleural-parenchymal scarring. Cannot rule out superimposed pneumonia.
Leukocytosis
-
History of recurrent pneumonia
Klebsiella/Pseudomonas/streptococcal
Interstitial lung disease/bronchiectasis-without exacerbation.
Conditions present prior to admission
Hypothyroidism
History of laryngeal cancer status postchemotherapy/XRT in 1996
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
History of breast cancer 2020 left side
Lumpectomy
History for recurrent bowel obstruction, last 2002
Chronic dysphagia/aspiration syndrome
[id number] history of smoking, quit
Family history of breast cancer
Plan/recommendations
-
Clinically improved since admission from the respiratory perspective.
Remains afebrile
Leukocytosis rapidly improved
Cannot rule out aspiration pneumonitis-possibly already improving.
Chest x-ray: Chronic upper lobe abnormalities since 2021. Difficult to rule out pneumonia
CT abdomen pelvis lung cuts reviewed: Showed bibasilar bronchiolitis present since 2021 worse now. Suspect chronic microaspiration.
-
Without evidence of active infection:
Agree with observation of antibiotics for now for additional 24 hours.
If there is fever/worsening leukocytosis then may need to restart and complete 7 days.
-
Does not appear toxic.
Not bronchospastic on exam
Good air movement
No significant phlegm production
Continue with secretion clearance interventions.
Currently on room air.
Continue to wean down to off as able.
-
Patient is not on chronic steroid therapy.
Has been on nebulized therapy in the past but does not take regularly, only takes with flareups.
Not bronchospastic on exam 12/21/2024 or 12/22/2024.
-
Follow sputum culture-normal respiratory paola 12/20/2024
Negative influenza
Negative COVID
-
Continue secretion clearance interventions:
Nebulizers:-Ipratropium/Xopenex via nebulizer as needed.
No need for systemic or nebulized steroids. Apparently patient has developed thrush in the past.
Currently on nystatin for thrush
Continue with airway clearance, Acapella encouraged.
Continue with aspiration precautions.
Head of the bed elevate
PEG tube in place-eventually restart tube feedings.
-
Nausea and vomiting.
CT abdomen pelvis noted. No acute abnormalities. Bibasilar bronchiolitis worsening from before.
-
DNR status
Palliative care has seen the patient as well.
-
Follow up with Dr. Horton after DC in 2-3 weeks.
-
From the pulmonary perspective would observe for additional 24 hours. If afebrile and without worsening oxygen requirements and not respiratory distress okay to discharge with outpatient follow-up.
Suspect she has chronic microaspiration. Will need imaging follow-up.
Subjective Data
-
Date of Service:
Date of Service: December 22, 2024
Chief Complaint: Pulmonary Follow Up (Abnormal chest x-ray/pneumonia)
Subjective:
Patient offers no new complaints
Denies increased phlegm production
Denies shortness of breath at rest
Review of Systems
General: Fever (n)
Cardiopulmonary: Dyspnea (none at rest)
GI: Abdominal Pain (n) and Nausea (n)
Objective Data
Data Reviewed
Vital Signs / I&O / Oxygen:
Vital Signs
Temp Pulse Resp BP Pulse Ox
98.3 F 104 17 178/121 94
12/22/24 10:58 12/22/24 11:25 12/22/24 10:58 12/22/24 11:25 12/22/24 10:58
Intake and Output
12/21/24 12/22/24 12/23/24
06:59 06:59 06:59
Intake Total 900 / 900 19190
Balance 900 / 900 1920 / 1920
SaO2 94
Nasal Cannula flow liters per 2
minute
Physical Exam
General: Comfortable
HEENT: Normocephalic
Cardiovascular: S1-S2
Respiratory: Crackles and Non-Labored Respirations
GI: Soft
Neurology: Awake and Alert
Skin: Warm
Labs/Micro/Reports
Lab Data
12/22/24 06:14
12/22/24 06:14
Microbiology
12/20/24 18:12 Sputum Respiratory Culture - Final
Usual Respiratory [place]ola
12/20/24 18:12 Sputum Gram Stain - Final
12/20/24 21:05 Nasal Swab Influenza Types A & B (ANNEMARIE) - Final
Negative for Influenza A & B, NAAT
Negative results must be combined with clinical observations
and patient history.
Nucleic Acid Amplification test (NAAT)performed on the
[employer] platform.
--- NOTE | 2024-12-22 12:07 | W.PN.HOSP.TC ---
Today's Communication/Plan
-
Monitor vital signs see plan
Nausea/vomiting appears to be improving
Start MiraLAX, Senokot. If does not improve then will need enema
Start amlodipine
Assessment / Plan
Assessment / Plan
General: Well Developed, No Apparent Distress, Conversant, Respiratory Distress, Pain, Chills, Appears Chronically Ill and Cachectic
HEENT: NormoCephalic, Moist mucous membranes, Atraumatic; No Neck Nontender
Respiratory: Clear, Crackles and Decreased Breath Sounds
Cardiac: S1/S2, Regular Rhythm
GI: Soft, Non Tender, Non Distended and Normal Bowel Sounds
Musculoskeletal: No Edema
Skin: Warm, Rash (front of neck) and IV/Catheter Site
Neuro: Awake, Alert, AO x 3 and Nonfocal/grossly intact
Psych: Calm and Intact Judgment/Insight
Suspected bronchitis with possibility of pneumonia/pneumonitis
# Concern for recent aspiration
procal normal; would not treat with antibiotics at this time. Some lung consolidation could be secondary to scarring
Patient follows with Dr. Horton out patient for pulmonology
Neck CT: Unremarkable neck soft tissues.
Bilateral upper lobe consolidations, right worse than left.
Bilateral upper lobe pleural parenchymal scarring. Superimposed pneumonia in the right upper lobe not definitely excluded.
Moderate to severe multilevel degenerative changes of the lower cervical spine.
- sputum culture pending
- O2 PRN to maintain SpO2 >93%
- Pulmonary following
Neck CT without any acute abnormality in the neck. Bilateral upper lobe consolidations. Pleural parenchymal scarring.
covid, flu neg
Acute hypoxic respiratory insufficiency
Has problem with mucous plugging in the past
Pulmonary following
Wean oxygen as tolerated
Recurrent nausea and vomiting
Per patient. Started after she was started on amoxicillin by PCP
Per patient she also had history of SBO
Abdomen/pelvis CT without any obstruction. Does show constipation. Start MiraLAX, Senokot through tube. If does not improve then will need enema
Continue with Zofran
speech eval
#Oral thrush
- nystatin swish and swallow
#hypothyroidism
- continue levothyroxine
Hyponatremia
Monitor
#anxiety
- continue Xanax
HTN, no prior hx
monitor, start amlodipine 5 mg through tube daily
hydralazine prn
#Hx malignant neoplasm of larynx
s/p radiation 28-30 years ago
has had recurrent aspiration s/p radiation
PEG in place, currently uses Liquid Hope, Peptide Formula TID (patient will supply). Dietary consult
- consult palliative care
- consult hospice care
#Hx left breast invasive ductal carcinoma
s/p lumpectomy and radiation 2009
s/p lumpectomy 2020
patient with new area on right breast, scheduled to be biopsied Dec 2024
#chronic hepatitis C
Code status: DNR
DVT Prophylaxis: Lovenox Sq
I spent a total of 52 minutes with the patient or on the floor. More than 50% of this time involved counseling and coordination of care.
Anticipated Discharge: 24 - 48 hours
Subjective/Interval History
-
Date of Service: December 22, 2024
Feeling little better today
Objective Data
-
Labs:
Laboratory Results
12/22/24
06:14
WBC 11.7 H
Hgb 12.1
Hct 35.7 L
Plt Count 344 D
Sodium 133 L
Potassium 4.0
Chloride 94 L
Carbon Dioxide 24
BUN 22 H
Creatinine 0.7
Glucose 78
Calcium 8.3 L
Vital Signs:
Vital Signs
Temp Pulse Resp BP Pulse Ox
98.3 F 104 17 178/121 94
12/22/24 10:58 12/22/24 11:25 12/22/24 10:58 12/22/24 11:25 12/22/24 10:58
I&O
12/21/24 12/22/24 12/23/24
06:59 06:59 06:59
Intake Total 900 / 900 1919
Balance 900 / 900 1919
--- NOTE | 2024-12-22 14:00 | PTCARENOTE ---
Tigan IM offered to pt for nausea. Pt requested to wait on taking the tigan.
--- NOTE | 2024-12-22 14:08 | PN.CDI ---
CDI
- -
CDI:
Physician Documentation Request
Admit Date: 12/20/24 17:38
Dear Doctor Yuriy,
Please review the following and provide your response in the progress notes.
Clinical Indicators:
PN, 12/20
#Patient clinically septic tachycardia and leukocytosis.
#Seems patient has a URI with possible pneumonia.
#Seems patient has a URI with possible pneumonia.
Initial VS, 12/20
98.8 110 17 164/117 89%
Laboratory Tests
12/20/24 12/21/24 12/22/24
11:57 06:04 06:14
WBC 12.0 H 9.4 11.7 H
Recognized standard criteria for this condition and other associated definitions:
�Sepsis
-Systemic manifestations of infection, with 2 or more SIRS criteria which include:
-Fever > 100.4��F or hypothermia < 96.8��F
-Leukocytosis WBC > 12,000 or leukopenia, WBC < 4,000, or > 10% bands
-Tachycardia- > 90 beats/minute
-Tachypnea- RR > 20 breaths/minute or PaCO2 < 32mmHg
Source: Merck Manual 2013
-Documentation should include the known or suspected organism, and the underlying infection, such as UTI or pneumonia
Based on the above information and the recognized standard SIRS criteria, please clarify if sepsis is still an accurate diagnosis, and reflective of the patient�s condition, to ensure quality of the medical record.
Please clarify in the Progress Notes:
Sepsis is/was present and is a clinical diagnosis based on (please include this additional support in the medical record)
After study sepsis has been ruled out
Other(please specify)
Use of terms such as suspected, likely, concern for, or probable (associated with a specific diagnosis that is being evaluated, monitored, or treated as if it exists) are acceptable and can be coded in the inpatient setting, when documented at the
time of discharge.
Thank you,
Navya Fritz RN BSN CCDS
CDI Specialist
please contact via tiger text
Please use your independent medical judgment in providing your response.
--- NOTE | 2024-12-22 14:15 | PN.CDI ---
CDI
- -
CDI:
Physician Documentation Request
Admit Date: 12/20/24 17:38
Dear Doctor Yuriy,
Please review the following and provide your response in the progress notes.
Clinical Indicators:
PN, 12/22
#Suspected bronchitis with possibility of pneumonia/pneumonitis
#... Concern for recent aspiration
#...procal normal;
#...would not treat with antibiotics at this time.
#...Some lung consolidation could be secondary to scarring
#...Neck CT: Unremarkable neck soft tissues.
#... Bilateral upper lobe consolidations, right worse than left.
#... Bilateral upper lobe pleural parenchymal scarring.
#...Superimposed pneumonia in the right upper lobe not definitely excluded.
Pulmonary, PN, 12/22
#Interstitial lung disease/bronchiectasis-without exacerbation.
#Chronic dysphagia/aspiration syndrome
#...Cannot rule out aspiration pneumonitis-possibly already improving.
#...Suspect she has chronic microaspiration.
Based on the above and your clinical assessment, please clarify in the Progress Notes further specificity regarding the known, suspected or likely condition/diagnosis treating (recognizing the specific organism may not be known)?
Aspiration Pneumonitis
Acute Bronchitis
Aspiration Pneumonia - indicate substance such as food or vomitus, oils or other solids or liquids
Bronchiectasis with acute bronchitis
Other type(please specify)
Use of terms such as suspected, likely, concern for, or probable (associated with a specific diagnosis that is being evaluated, monitored, or treated as if it exists) are acceptable and can be coded in the inpatient setting, when documented at the
time of discharge.
Thank you,
Navya Fritz RN BSN CCDS
CDI Specialist
please contact via tiger text
Please use your independent medical judgment in providing your response.
[2024-12-22] MEDS: NORVASC 5 MG TUBE (14:57)
[2024-12-22] MEDS: SENOKOT-S TUBE (14:58)
[2024-12-22] MEDS: MIRALAX 17 GRAMS TUBE (14:59)
--- NOTE | 2024-12-22 15:00 | PTCARENOTE ---
Milk & molasses enema given. Pt tolerated and passed round, hard stool and gas. Senna and miralax administered. Per pt - nausea is improving and wants to hold off on Tigan for now.
--- NOTE | 2024-12-22 15:59 | CM ---
Spoke with Linette [facility]ballo hospice liason who stated that per patient request, they will meet on Thursday however she may be leaning towards Palliative Care. Will f/u with patient after she speaks with hospice.
Plan: Case management will continue to follow and assist with discharge planning. Hospice vrs. Pallative.
[2024-12-22] MEDS: XANAX 0.5 MG TUBE ×2 (16:12→21:15)
[2024-12-22] MEDS: LOVENOX 40 MG SC (17:53)
--- NOTE | 2024-12-22 17:57 | VATNOTE ---
Attempts to restart IV unsuccessful, Another VAT nurse to attempt.
[2024-12-22] MEDS: TYLENOL ORAL SOLUTION 650 MG TUBE (19:33)
[2024-12-22] MEDS: MYCOSTATIN ORAL SUSPENSION PO (21:16)
[2024-12-22] MEDS: SENOKOT 8.6 MG TUBE (21:16)
[2024-12-22] MEDS: SENOKOT-S 1 TABLET TUBE (21:16)
[2024-12-22] MEDS: TIGAN 200 MG IM (21:27)
[2024-12-23 03:23] VITALS: BP 160/109
[2024-12-23] MEDS: TORADOL 15 MG IV ×2 (03:26→12:26)
[2024-12-23] MEDS: SYNTHROID 100 MCG TUBE (05:40)
[2024-12-23 06:47] LABS: Blood Urea Nitrogen 21 mg/dl (7-17); Calcium 8.9 mg/dl (8.4-10.2); Carbon Dioxide 23 mmol/L (22-30); Chloride 97 mmol/L (98-107); Estimated Creatinine Clearance 73 ml/min; Glucose 87 mg/dl (70-99); Potassium 3.9 mmol/L (3.5-5.1); Sodium 132 mmol/L (135-145); eGFR > 60.00
[2024-12-23 07:08] LABS: % Basophils 0.7 % (0-2); % Eosinophils 0.5 % (0-6); % Immature Granulocytes 1.6 % (0-0.5); % Lymphocytes 11.2 % (20.5-51.1); % Monocytes 6.2 % (1.7-9.3); % Neutrophils 79.8 % (42.2-75.2); Absolute Basophils 0.1 10^3/uL (0-0.2); Absolute Eosinophils 0.1 10^3/uL (0-0.7); Absolute Immature Granulocytes 0.2 10^3/uL (0-0.05); Absolute Lymphocytes 1.7 10^3/uL (1.2-3.4); Absolute Monocytes 0.9 10^3/uL (0.1-0.6); Absolute Neutrophils 11.8 10^3/uL (1.4-6.5); Hematocrit 40.5 % (37.0-47.0); Mean Corp Hgb Conc. 34.6 g/dL (33.0-37.0); Mean Corpuscular Hgb 28.5 pg (27.0-31.0); Mean Corpuscular Volume 82.5 fL (81.0-99.0); Nucleated Red Blood Cells % 0 %; Red Blood Cell Count 4.91 10^6/uL (4.20-5.40); Red Cell Dist. Width 13.1 % (11.5-14.5); White Blood Cell Count 14.7 10^3/uL (4.8-10.8)
[2024-12-23 07:10] VITALS: BP 158/101
[2024-12-23] MEDS: MIRALAX TUBE (09:30)
[2024-12-23] MEDS: MYCOSTATIN ORAL SUSPENSION PO (09:31)
[2024-12-23] MEDS: NORVASC TUBE (09:31)
[2024-12-23] MEDS: SENOKOT TUBE (09:32)
[2024-12-23] MEDS: SENOKOT-S TUBE (09:32)
[2024-12-23] MEDS: D5/0.9% SODIUM CHLORIDE 1000 IV (10:06)
[2024-12-23 11:00] VITALS: BP 176/127
[2024-12-23] MEDS: APRESOLINE 5 MG IV (11:17)
[2024-12-23] MEDS: TIGAN 200 MG IM (11:22)
[2024-12-23] MEDS: MYCOSTATIN ORAL SUSPENSION 5 ML PO (12:26)
--- NOTE | 2024-12-23 12:37 | W.PN.PUL3 ---
Today's Communication / Plan
-
Continue secretion clearance interventions nebulizers
Acapella device
Remains on room air
Continue to observe off antibiotics-doubt infection
Agree with discharge planning
Sign off
Assessment
-
63-year-old female with history of recurrent pneumonia, Pseudomonas/streptococcal pneumonia in the past, aspiration syndrome with ongoing speech and swallow therapy as outpatient, history of head and neck/laryngeal cancer with radiation/chemotherapy
, presents with increased symptoms -did receive amoxicillin in the outpatient setting but developed vomiting. Admitted on 12/20/2024 with progressive moist cough, shortness of breath, fevers and chills. Chest x-ray abnormal.
Cough/abnormal chest x-ray: Possibly aspiration event? Pneumonitis versus pneumonia.
Chest x-ray 12/20/2024: Chronic appearing patchy bilateral infiltrates. Stable to December 17, 2024. No pleural effusion.
CT neck 12/20/2024: Lung cuts reviewed. Showed bilateral upper lobe consolidations right worse than left. Bilateral upper lobe pleural-parenchymal scarring. Cannot rule out superimposed pneumonia.
Leukocytosis
-
History of recurrent pneumonia
Klebsiella/Pseudomonas/streptococcal
Interstitial lung disease/bronchiectasis-without exacerbation.
Conditions present prior to admission
Hypothyroidism
History of laryngeal cancer status postchemotherapy/XRT in 1996
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
History of breast cancer 2020 left side
Lumpectomy
History for recurrent bowel obstruction, last 2002
Chronic dysphagia/aspiration syndrome
[id number] history of smoking, quit
Family history of breast cancer
Plan/recommendations
-
Clinically improved since admission from the respiratory perspective.
Remains afebrile
On room air 94%.
Lung exam relatively clear without bronchospasm.
Leukocytosis initially rapidly improved 12> 9.4> 11> 14,000.
She does not appear toxic.
Cannot rule out aspiration pneumonitis-possibly already improving.
Chest x-ray: Chronic upper lobe abnormalities since 2021. Difficult to rule out pneumonia
CT abdomen pelvis lung cuts reviewed: Showed bibasilar bronchiolitis present since 2021 worse now. Suspect chronic microaspiration.
-
Without evidence of active infection:
Agree with observation of antibiotics.
Continue to follow clinically.
-
Good air movement
No significant phlegm production
Continue with secretion clearance interventions.
Patient is not on chronic steroid therapy.
Has been on nebulized therapy in the past but does not take regularly, only takes with flareups.
-
Follow sputum culture-normal respiratory paola 12/20/2024
Negative influenza
Negative COVID
-
Continue secretion clearance interventions:
Nebulizers:-Ipratropium/Xopenex via nebulizer as needed.
No need for systemic or nebulized steroids. Apparently patient has developed thrush in the past.
Currently on nystatin for thrush
Continue with airway clearance, Acapella encouraged.
Continue with aspiration precautions.
Head of the bed elevate
PEG tube in place-eventually restart tube feedings.
-
Nausea and vomiting. Improving.
CT abdomen pelvis noted. No acute abnormalities. Bibasilar bronchiolitis worsening from before.
-
DNR status
Palliative care has seen the patient as well.
-
Follow up with Dr. Horton after DC in 2-3 weeks.
-
Discharge planning ongoing.
No additional recommendation from the pulmonary perspective
Patient contemplating hospice.
Subjective Data
-
Date of Service:
Date of Service: December 23, 2024
Chief Complaint: Pulmonary Follow Up (Abnormal chest x-ray/pneumonia)
Subjective:
She offers no new complaints
Nausea has improved
No significant hemoptysis or worsening phlegm production
Remains afebrile
Review of Systems
Cardiopulmonary: Dyspnea (n) and Cough
GI: Abdominal Pain (n) and Nausea (improved)
Objective Data
Data Reviewed
Vital Signs / I&O / Oxygen:
Vital Signs
Temp Pulse Resp BP Pulse Ox
98 F 70 17 176/127 94
12/23/24 11:00 12/23/24 11:00 12/23/24 11:00 12/23/24 11:00 12/23/24 11:00
Intake and Output
12/22/24 12/23/24 12/24/24
06:59 06:59 06:59
Intake Total 1919
Balance 1919
SaO2 94
Nasal Cannula flow liters per 2
minute
Physical Exam
General: Comfortable
HEENT: Normocephalic
Cardiovascular: S1-S2
Respiratory: Crackles and Non-Labored Respirations
GI: Soft
Neurology: Awake and Alert
Skin: Warm
Labs/Micro/Reports
Lab Data
12/23/24 05:58
12/23/24 05:58
Microbiology
12/20/24 18:12 Sputum Respiratory Culture - Final
Usual Respiratory Paola
12/20/24 18:12 Sputum Gram Stain - Final
12/20/24 21:05 Nasal Swab Influenza Types A & B (ANNEMARIE) - Final
Negative for Influenza A & B, NAAT
Negative results must be combined with clinical observations
and patient history.
Nucleic Acid Amplification test (NAAT)performed on the
[employer] platform.
--- NOTE | 2024-12-23 13:44 | W.PN.HOSP.TC ---
Today's Communication/Plan
-
Monitor vitals
See plan
Patient now feels better and able to tolerate tube feeding. Continue with laxatives on discharge
Status post Tigan and another enema today with good response
Continue amlodipine
Patient will get speech follow-up and VSE outpatient.
Discharge today
Time of discharge 38 minutes
Assessment / Plan
Assessment / Plan
General: Well Developed, No Apparent Distress, Conversant, Respiratory Distress, Pain, Chills, Appears Chronically Ill and Cachectic
HEENT: NormoCephalic, Moist mucous membranes, Atraumatic; No Neck Nontender
Respiratory: Clear, Crackles and Decreased Breath Sounds
Cardiac: S1/S2, Regular Rhythm
GI: Soft, Non Tender, Non Distended and Normal Bowel Sounds
Musculoskeletal: No Edema
Skin: Warm, Rash (front of neck) and IV/Catheter Site
Neuro: Awake, Alert, AO x 3 and Nonfocal/grossly intact
Psych: Calm and Intact Judgment/Insight
Suspected bronchitis with possibility of pneumonia/pneumonitis
Suspect aspiration pneumonitis
After study sepsis has been ruled out
procal normal; would not treat with antibiotics at this time. Some lung consolidation could be secondary to scarring
Patient follows with Dr. Horton out patient for pulmonology
Neck CT: Unremarkable neck soft tissues.
Bilateral upper lobe consolidations, right worse than left.
Bilateral upper lobe pleural parenchymal scarring. Superimposed pneumonia in the right upper lobe not definitely excluded.
Moderate to severe multilevel degenerative changes of the lower cervical spine.
- O2 PRN to maintain SpO2 >93%
- Pulmonary following, patient will follow-up with pulmonary outpatient. Agrees with monitoring off antibiotics. Will advise patient to get CBC outpatient to monitor for leukocytosis. Currently she does not have any fever.
Neck CT without any acute abnormality in the neck. Bilateral upper lobe consolidations. Pleural parenchymal scarring.
covid, flu neg
Acute hypoxic respiratory insufficiency
Has problem with mucous plugging in the past
Pulmonary following
Wean oxygen as tolerated, now on room air
Recurrent nausea and vomiting
Per patient. Started after she was started on amoxicillin by PCP
Per patient she also had history of SBO
Abdomen/pelvis CT without any obstruction. Does show constipation. Started MiraLAX, Senokot through tube. status post enema 12/23 with some response. Give enema again today. After the enema patient started to feel better and denies further
nausea. Also tolerated tube feed. Discussed with GI and will discharge patient with laxatives.
Tigan
Continue with Zofran
speech evaluated; recommended VSE however that cannot be done today or over the weekend. Patient wants to go home. Patient is aware not to take anything oral and to use PEG tube for feeding and meds. VSE outpatient with speech.
#Oral thrush
- nystatin swish and swallow
#hypothyroidism
- continue levothyroxine
Hyponatremia
Monitor
#anxiety
- continue Xanax
HTN, no prior hx
monitor, start amlodipine 5 mg through tube daily. Patient is aware to follow-up closely with primary care provider for further blood pressure medication titration.
hydralazine prn
#Hx malignant neoplasm of larynx
s/p radiation 28-30 years ago
has had recurrent aspiration s/p radiation
PEG in place, currently uses Liquid Hope, Peptide Formula TID (patient will supply). Patient using her tube feeds
Palliative care following
#Hx left breast invasive ductal carcinoma
s/p lumpectomy and radiation 2009
s/p lumpectomy 2020
patient with new area on right breast, scheduled to be biopsied Dec 2024
#chronic hepatitis C
Code status: DNR
DVT Prophylaxis: Lovenox Sq
Anticipated Discharge: Today
Subjective/Interval History
-
Date of Service: December 23, 2024
Still nauseous at times
Objective Data
-
Labs:
Laboratory Results
12/23/24
05:58
WBC 14.7 H
Hgb 14.0
Hct 40.5
Plt Count
Sodium 132 L
Potassium 3.9
Chloride 97 L
Carbon Dioxide 23
BUN 21 H
Creatinine 0.6
Glucose 87
Calcium 8.9
Vital Signs:
Vital Signs
Temp Pulse Resp BP Pulse Ox
98 F 70 17 176/127 94
12/23/24 11:00 12/23/24 11:00 12/23/24 11:00 12/23/24 11:00 12/23/24 11:00
I&O
12/22/24 12/23/24 12/24/24
06:59 06:59 06:59
Intake Total 1919
Balance 1919
--- NOTE | 2024-12-23 13:53 | W.PN.UPDATE ---
Update Note
Progress Note Update
asked to see for nausea but in review with patient and family has large stool and feeling improved. Reviewed with Dr. Yan hold GI consult for now. Continue laxative regiment and call GI for any other issue or problems.
--- NOTE | 2024-12-23 14:06 | HOSPNOTE ---
Spoke at length with patient and friend Elida. The patient will be going home today and [facility] has been notified and will reach out to patient. The patient has a breast biopsy being done in 2 weeks and then will call hospice. The patient has my card
and will be in touch. I will continue to follow patient once home. Attending and CM aware of plan.
--- NOTE | 2024-12-23 14:13 | W.DCSUMMARY ---
Discharge Summary
Discharge Data
Date of Admission: 12/20/24
Date of Discharge: 12/23/24
-
Pending Results: No
Hospital Course
64-year-old female with past medical history of hypertension, malignant neoplasm of larynx, breast cancer status post lumpectomy and radiation, chronic hepatitis C, hypothyroidism, feeding tube, pleural parenchymal scarring came to the hospital with
bronchitis secondary to pneumonitis. Patient had nausea and vomiting since she was recently started on antibiotics and it appeared that she likely had aspiration pneumonitis. Her procalcitonin was nonsignificant so she was not started on any more
antibiotics. Patient was seen by pulmonary throughout hospitalization who agreed with observing patient off antibiotics. She did had some leukocytosis for which she was instructed to follow-up outpatient. For her recurrent nausea and vomiting, CT
scan was done which did not show any signs of obstruction however did show significant constipation. She was then started on laxatives along with enema and finally she had bowel movement and thus her symptoms continue to improve. She was able to
tolerate her tube feeding prior to discharge. She also had oral thrush for which she was treated with nystatin. She was also seen by speech therapy who recommended video swallow study and speech evaluation outpatient before started on any p.o.
intake. Once her symptoms continue to improve she was then discharged and instructed to follow-up with all her outpatient physicians.
Discharge Plan
-
Patient Disposition: Home with Home Care
Discharge Diagnosis/Procedures: Suspect bronchitis with possibility of pneumonitis secondary to aspiration
Acute hypoxic respiratory insufficiency
Recurrent nausea and vomiting
Constipation
Oral thrush
Hypertension
Diet: Tube feeding and Other diet
Additional Diets: Continue with tube feed
Activity: As tolerated
Driving Restrictions: As prior to admission
Bathing Restrictions: None
Blood Work: CBC next week with primary care provider
Others Tests: Follow-up with speech therapy for VSE
Other Services: ST
Activity Restrictions/Additional Instructions:
Please follow-up with your primary care provider closely regarding her blood pressure medication titration. Please check your blood pressure twice daily.
Referrals:
Jaida Horton MD [Active] - in three to four weeks
Alysa Mckeon MD [Active] -
Melani Wilkerson MD [Family Provider] - in less than 1 week
Prescriptions:
New
nystatin 100,000 unit/mL Suspension
5 ml PO QID Qty: 60 0RF
polyethylene glycol 3350 17 gram Powder In Packet
17 g feeding tube DAILY Qty: 0 0RF
amlodipine 5 mg Tablet
5 mg feeding tube DAILY Qty: 30 0RF
ondansetron HCl 8 mg tablet
8 mg feeding tube Q8H PRN (Reason: nausea and vomiting) 5 Days Qty: 15 0RF
Continued
estradiol [Estrace] 0.01 % (0.1 mg/gram) Cream
0 applic VAGINAL TU
levalbuterol HCl 1.25 mg/3 mL Solution For Nebulization
1.25 mg INHALATION R Q8HPRN PRN (Reason: sob)
ipratropium bromide 0.02 % Solution
0.5 mg INHALATION R Q6HPRN PRN (Reason: sob)
sodium chloride 0.65 % Aerosol,Preston
2 spray INTRANASAL QID PRN (Reason: congestion)
Changed
sennosides [Senna Lax] 8.6 mg Tablet
8.6 mg feeding tube BID Qty: 0 0RF
acetaminophen [Tylenol] 325 mg Tablet
650 mg feeding tube Q6H PRN (Reason: pain) Qty: 0 0RF
trazodone 50 mg tablet
50 mg feeding tube HSPRN PRN (Reason: insomnia) Qty: 0 0RF
levothyroxine 100 mcg tablet
100 mcg feeding tube DAILY@0600 Qty: 0 0RF
alprazolam [Xanax] 0.5 mg Tablet
0.5 mg feeding tube HS Qty: 0 0RF
Discontinued
ibuprofen 200 mg Tablet
400 mg PO Q6H PRN (Reason: mild pain)
Discharge Orders:
Discharge Patient (As Directed); Ordered 12/23/24
Ordered By: Kulwant Yan
Discharge Date and Time
Discharge Date/Time: 12/23/24 15:46
Print Language: GREEK
[2024-12-23] MEDS: XANAX 0.5 MG TUBE (14:36)
[2024-12-23 15:00] VITALS: BP 159/108
--- NOTE | 2024-12-23 17:01 | CM ---
Referral sent to [facility]. Patient deciding not to go on hospice or Palliative at this time.
Plan: Case management will continue to follow and assist with discharge planning. Home with [facility].
== END 2024-12-23 15:46 | disposition home health service (06) | DRG 178 ==
LOC: 3 WEST ACU 17:38
PROVIDERS: Nurse Practitioner Family; Registered Nurse; ADMITTING PHYSICIAN Hospitalist; ATTENDING PHYSICIAN Internal Medicine; CONSULT PHYSICIAN Internal Medicine Hospice and Palliative Medicine; EMERGENCY PHYSICIAN Student in an Organized Health Care Education/Training Program; FAMILY PHYSICIAN Internal Medicine; OTHER PHYSICIAN Internal Medicine Critical Care Medicine
DX: J69.0 Pneumonitis due to inhalation of food and vomit (principal); B37.0 Candidal stomatitis; E87.1 Hypo-osmolality and hyponatremia; E89.0 Postprocedural hypothyroidism; R09.02 Hypoxemia; F41.9 Anxiety disorder, unspecified; B18.2 Chronic viral hepatitis C; J84.9 Interstitial pulmonary disease, unspecified; J98.4 Other disorders of lung; J47.9 Bronchiectasis, uncomplicated; R06.89 Other abnormalities of breathing; J40 Bronchitis, not specified as acute or chronic; K59.00 Constipation, unspecified; I10 Essential (primary) hypertension; K21.9 Gastro-esophageal reflux disease without esophagitis; M54.2 Cervicalgia; F11.91 Opioid use, unspecified, in remission; Z66 Do not resuscitate; Z60.2 Problems related to living alone; Z11.52 Encounter for screening for COVID-19; Z85.3 Personal history of malignant neoplasm of breast; Z85.21 Personal history of malignant neoplasm of larynx; Z87.891 Personal history of nicotine dependence; Z80.3 Family history of malignant neoplasm of breast; Z82.49 Family history of ischemic heart disease and other diseases of the circulatory system; Z90.49 Acquired absence of other specified parts of digestive tract; Z92.3 Personal history of irradiation; Z79.890 Hormone replacement therapy; Z87.01 Personal history of pneumonia (recurrent); Z93.1 Gastrostomy status; Z92.21 Personal history of antineoplastic chemotherapy; Z86.16 Personal history of COVID-19; Z81.3 Family history of other psychoactive substance abuse and dependence
CPT/HCPCS: 70491; 71046; 74177; 80048; 80053; 84145; 85025; 85027; 87070; 87205; 87502; 87811; 92526; 92610; 94640; 96361; 96374; 96375; 96376; 99285; Q9967